=== PATIENT | male | born 1980 | race Caucasian/White ===

== ENCOUNTER 2018-07-16 13:59 | Inpatient (IN) | payer OTHER ==
[2018-07-16 17:15] VITALS: BMI 30.2
--- NOTE | 2018-07-16 20:19 | HP ---
COWS - Scale Resting Pulse: 0= [place] 80 or Below Sweatin=Flushed/Facial Moisture Restless Observation: 0= Sits Still Pupil Size: 0= Normal to Room Light Bone or Joint Aches: 4=Acute Joint/Muscle Pain Runny Nose/ Eye Tearin= Nasal Congestion GI Upset > 30mins: 1= Stomach Cramp Tremor Observation: 2= Slight Tremor Visible Yawning Observation: 0= None Anxiety or Irritability: 4=Extreme Anxiety Goose Flesh Skin: 0=Smooth Skin COWS Score: 14 CIWA Score - Admission Criteria [facility] Guidelines: Admission for Medically Managed Detox: Requires at least one of the followin. CIWA greater than 12 2. Seizures within the past 24 hours 3. Delirium tremens within the past 24 hours 4. Hallucinations within the past 24 hours 5. Acute intervention needed for co occurring medical disorder 6. Acute intervention needed for co occurring psychiatric disorder 7. Severe withdrawal that cannot be handled at a lower level of care (continued vomiting, continued diarrhea, abnormal vital signs) requiring intravenous medication and/or fluids 8. Admission ROS [facility] Chief Complaint: Heroin withdrawal symptoms Allergies/Adverse Reactions: Allergies Allergy/AdvReac Type Severity Reaction Status Date / Time No Known Allergies Allergy Verified 07/16/18 18:26 History of Present Illness: 37 years old male with 4 months of heroin dependence is seeking admission to detox. This is his first detox admission to detox and to [facility]. He denies any period of sobriety. He has medical history of GERD and Depression. He denies suicide attempt and suicidal ideation at this time. Exam Limitations: No Limitations - Ebola screening Have you traveled outside of the country in the last 21 days: No Have you had contact with anyone from an Ebola affected area: No Have you been sick,other than usual withdrawal symptoms: No Do you have a fever: No - Review of Systems Constitutional: Chills, Loss of Appetite, Malaise, Changes in sleep EENT: reports: No Symptoms Reported Respiratory: reports: No Symptoms reported Cardiac: reports: No Symptoms Reported GI: reports: Poor Appetite, Poor Fluid Intake, Abdominal cramping : reports: No Symptoms Reported Musculoskeletal: reports: Neck Pain Integumentary: reports: Dryness Endocrine: reports: No Symptoms Reported Hematology: reports: No Symptoms Reported Psychiatric: reports: Mood/Affect Appropiate, Orientated x3 Other Systems: Reviewed and Negative Patient History - Patient Medical History Hx Anemia: No Hx Asthma: No Hx Chronic Obstructive Pulmonary Disease (COPD): No Hx Cardiac Disorders: No Hx Congestive Heart Failure: No Hx Hypertension: No Hx Hypercholesterolemia: No Hx Pacemaker: No HX Cerebrovascular Accident: No Hx Seizures: No Hx Diabetes: No Hx Gastrointestinal Disorders: Yes (GERD - Omeprazole) Hx Liver Disease: No Hx Genitourinary Disorders: No Hx Sexually Transmitted Disorders: No Hx Renal Disease (ESRD): No Hx Thyroid Disease: No Hx Human Immunodeficiency Virus (HIV): No (NEGATIVE - MARCH 2018) Hx Hepatitis C: No Hx Depression: Yes (Depakote - Patient reort non compliance with medication) Hx Suicide Attempt: No (Denies suicidal ideation at this time) Hx Bipolar Disorder: No Hx Schizophrenia: No - Patient Surgical History Past Surgical History: No - PPD History Previous Implant?: No - Smoking Cessation Smoking history: Current every day smoker Have you smoked in the past 12 months: Yes Aproximately how many cigarettes per day: 2 Hx Chewing Tobacco Use: No Initiated information on smoking cessation: Yes 'Breaking Loose' booklet given: 07/16/18 - Substances Abused Heroin Route: SNIFF Frequency: Daily Amount used: 1 BUNDLE Age of first use: 37 Date of Last Use: 07/16/18 Family Disease History - Family Disease History Family History: Denies Admission Physical Exam S - Vital Signs Vital Signs: Vital Signs - 24 hr 07/16/18 17:10 Temperature 98.7 F Pulse Rate 70 Respiratory 18 Rate Blood Pressure 135/82 - Physical General Appearance: Yes: Mild Distress, Moderate Distress, Tremorous, Irritable , Sweating, Anxious HEENTM: Yes: EOMI, Normal ENT Inspection, Normocephalic, Normal Voice, JAMMIE Respiratory: Yes: Lungs Clear, Normal Breath Sounds, No Respiratory Distress Neck: Yes: Supple Breast: Yes: Breast Exam Deferred Cardiology: Yes: Regular Rhythm, Regular Rate Abdominal: Yes: Normal Bowel Sounds Back: Yes: Normal Inspection Musculoskeletal: Yes: Other (NECK PAIN) Extremities: Yes: Tremors 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, Alert, Motor Strength 5/5, Normal Mood /Affect, Normal Response Integumentary: Yes: Warm Lymphatic: Yes: Within Normal Limits - Diagnostic (1) GERD (gastroesophageal reflux disease) Current Visit: Yes Status: Chronic (2) Depression Current Visit: Yes Status: Chronic Qualifiers: Depression Type: unspecified Qualified Code(s): F32.9 - Major depressive disorder, single episode, unspecified (3) Opioid dependence Current Visit: Yes Status: Chronic Qualifiers: Substance use status: uncomplicated Qualified Code(s): F11.20 - Opioid dependence, uncomplicated (4) Opioid dependence with withdrawal Current Visit: Yes Status: Acute (5) Nicotine dependence Current Visit: Yes Status: Acute Qualifiers: Nicotine product type: cigarettes Substance use status: uncomplicated Qualified Code(s): F17.210 - Nicotine dependence, cigarettes, uncomplicated (6) Cannabis dependence Current Visit: Yes Status: Acute Cleared for Admission S - Detox or Rehab [facility] Level of Care: Medically Managed Detox Regimen/Protocol: Methadone [facility] Breath Alcohol Content Breath Alcohol Content: 0 Urine Drug Screen - Results Drug Screen Negative: No Urine Drug Screen Results: THC-Marijuana, OPI-Opiates
[2018-07-16] MEDS ORDERED: MAGNESIUM CITRATE 300 ML BOTTLE PO PRN (20:28)
[2018-07-16] MEDS ORDERED: MENTHOL/PHENOL 1 EACH UD MM PRN (20:28)
[2018-07-16] MEDS ORDERED: NICOTINE POLACRILEX 2 MG GUM BUC PRN (20:28)
[2018-07-16] MEDS ORDERED: guaiFENesin/D-METHORPHAN HB 10 ML UNIT-DOSE CUPS PO PRN (20:28)
[2018-07-16] MEDS ORDERED: MAGNESIUM HYDROX 2400MG/30ML ORAL SUSPENSION 30 ML CUP PO PRN (20:28)
[2018-07-16] MEDS ORDERED: LOPERAMIDE HCL 2 MG CAPSULE PO PRN (20:28)
[2018-07-16] MEDS ORDERED: IBUPROFEN 400 MG TABLET (FP) PO PRN (20:28)
[2018-07-16] MEDS ORDERED: P-EPHED 60MG/TRIPROLIDI 2.5MG TABLET PO PRN (20:28)
[2018-07-16] MEDS ORDERED: MAG HYDROX/AL HYDROX/SIMETH 30 ML UNIT-DOSE CUP PO PRN (20:28)
[2018-07-16] MEDS ORDERED: METHADONE HCL 10 MG TABLET (FOR DETOX USE ONLY) PO ONE ×2 (20:28→23:00)
[2018-07-16] MEDS ORDERED: ACETAMINOPHEN 325 MG TABLET (FP) PO PRN (20:28)
[2018-07-16] MEDS ORDERED: MELATONIN 5 MG TABLETS PO PRN (22:00)
[2018-07-16] MEDS: diazePAM 5 MG TABLET PO PRN (22:07)
[2018-07-16] MEDS: THIAMINE HCL 100 MG TABLET (FP) PO SCH (22:45)
[2018-07-17 03:04] LABS: URINE APPEARANCE CLEAR; URINE BILIRUBIN NEGATIVE (<2.0 mg/dL); URINE COLOR YELLOW; URINE GLUCOSE (UA) NEGATIVE (NEGATIVE); URINE KETONE NEGATIVE (NEGATIVE); URINE LEUK ESTERASE NEGATIVE (NEGATIVE); URINE NITRITE NEGATIVE (NEGATIVE); URINE PROTEIN NEGATIVE (NEGATIVE)
[2018-07-17] MEDS ORDERED: METHADONE HCL 10 MG TABLET (FOR DETOX USE ONLY) PO ONE (10:00)
[2018-07-17 10:08] LABS: HEMOGLOBIN 13.7 GM/dL (11.7-16.9); MCHC 31.1 g/dl (32.0-35.9); MEAN CELL VOLUME 70.6 fl (80-96); MEAN PLT VOLUME 7.4 fl (7.5-11.1); PLATELET COUNT 474 K/MM3 (134-434); RBC 6.22 M/mm3 (4.00-5.60); WHITE BLOOD COUNT 7.1 K/mm3 (4.0-10.0)
[2018-07-17] MEDS: diazePAM 5 MG TABLET PO PRN ×2 (10:14→22:30)
[2018-07-17] MEDS: PRENATAL VITAMINS W/ FOLIC ACID TABLET (FP) PO SCH (10:15)
[2018-07-17] MEDS: NICOTINE 14 MG/24 HOURS TOPICAL PATCH TD SCH (10:15)
[2018-07-17] MEDS: PANTOPRAZOLE 40 MG TABLET (FP) PO SCH (10:16)
[2018-07-17 10:24] LABS: ALBUMIN 3.5 g/dl (3.4-5.0); ALK PHOS 76 U/L (45-117); ANION GAP 9 MMOL/L (8-16); BILIRUBIN,TOTAL 0.3 mg/dL (0.2-1); BLOOD UREA NITROGEN 18 mg/dL (7-18); CALCIUM 8.8 mg/dL (8.5-10.1); CHLORIDE 100 mmol/L (98-107); CO2 29 mmol/L (21-32); GLUCOSE,RANDOM 77 mg/dL (74-106); POTASSIUM 4.6 mmol/L (3.5-5.1); SGOT/AST 16 U/L (15-37); SGPT/ALT 22 U/L (13-61); SODIUM 138 mmol/L (136-145); TOT PROT 7.6 g/dl (6.4-8.2)
--- NOTE | 2018-07-17 11:00 | PN ---
[facility] Progress Note Note: PATIENT ADMITTED FOR HEROIN DETOX EARLY THIS MORNING. PATIENT C/O SLEEP DISTURBANCE, ANXIOUS AND IRRITABLE. Vital Signs Temperature 97.6 F 07/17/18 10:00 Pulse Rate 60 07/17/18 10:00 Respiratory Rate 17 07/17/18 10:00 Blood Pressure 113/68 07/17/18 10:00 O2 Sat by Pulse Oximetry (%) Laboratory Tests 07/16/18 07/17/18 07/17/18 23:49 07:00 07:00 WBC 7.1 RBC 6.22 H Hgb 13.7 Hct 44.0 MCV 70.6 L MCH 22.0 L MCHC 31.1 L RDW 19.0 H Plt Count 474 H MPV 7.4 L Sodium 138 Potassium 4.6 Chloride 100 Carbon Dioxide 29 Anion Gap 9 BUN 18 Creatinine 1.0 Creat Clearance w eGFR > 60 Random Glucose 77 Calcium 8.8 Total Bilirubin 0.3 AST 16 ALT 22 Alkaline Phosphatase 76 Total Protein 7.6 Albumin 3.5 Urine Color Yellow Urine Appearance Clear Urine pH 6.0 Ur Specific [place] 1.025 Urine Protein Negative Urine Glucose (UA) Negative Urine Ketones Negative Urine Blood Negative Urine Nitrite Negative Urine Bilirubin Negative Urine Urobilinogen 2.0 Ur Leukocyte Esterase Negative PE: ALERT AND ORIENTED X 3 PATIENT IRRITABLE, COVERED FACE WITH BLANKET HE DID NOT WANT TO SPEAK TO PROVIDER EXT FULL ROM, NO VISIBLE TREMORS AT THIS TIME A/P WITHDRAWAL SX CONTINUE DETOX ENCOURAGE ORAL FLUIDS CONTINUE TO MONITOR CLINICALLY
--- NOTE | 2018-07-17 18:47 | CONSULT ---
[facility] Psychiatric Consult - Data Date of interview: 07/17/18 Admission source: [facility] Identifying data: Patient is approached at bedside for psychiatric interview. Mr Ayala refused. Nursing staff is informed of the patient's behavior.
[2018-07-17] MEDS: THIAMINE HCL 100 MG TABLET (FP) PO SCH (22:30)
[2018-07-18] MEDS: NICOTINE 14 MG/24 HOURS TOPICAL PATCH TD SCH (09:47)
[2018-07-18] MEDS: PANTOPRAZOLE 40 MG TABLET (FP) PO SCH (09:47)
[2018-07-18] MEDS: PRENATAL VITAMINS W/ FOLIC ACID TABLET (FP) PO SCH (09:47)
[2018-07-18] MEDS: diazePAM 5 MG TABLET PO PRN (09:47)
[2018-07-18] MEDS ORDERED: METHADONE HCL 5 MG TABLET (FOR DETOX USE ONLY) PO ONE (10:00)
--- NOTE | 2018-07-18 14:23 | PN ---
S COWS - Scale Resting Pulse: 0= [place] 80 or Below Sweatin= Chills/Flushing Restless Observation: 3= Extraneous Movement Pupil Size: 0= Normal to Room Light Bone or Joint Aches: 2= Severe Diffuse Aches Runny Nose/ Eye Tearin= Runny Nose/Eyes GI Upset > 30mins: 1= Stomach Cramp Tremor Observation of Outstretched Hands: 2= Slight Tremor Visible Yawning Observation: 0= None Anxiety or Irritability: 2=Irritable/Anxious Goose Flesh Skin: 0=Smooth Skin COWS Score: 13 BHS Progress Note (SOAP) Subjective: Interrupted sleep, sweating Objective: 07/18/18 14:24 Last Vital Signs Temp Pulse Resp BP Pulse Ox 97.8 F 76 17 111/64 07/18/18 13:34 07/18/18 13:34 07/18/18 13:34 07/18/18 13:34 Laboratory Tests 07/16/18 07/17/18 07/17/18 23:49 07:00 07:00 WBC 7.1 RBC 6.22 H Hgb 13.7 Hct 44.0 MCV 70.6 L MCH 22.0 L MCHC 31.1 L RDW 19.0 H Plt Count 474 H MPV 7.4 L Sodium 138 Potassium 4.6 Chloride 100 Carbon Dioxide 29 Anion Gap 9 BUN 18 Creatinine 1.0 Creat Clearance w eGFR > 60 Random Glucose 77 Calcium 8.8 Total Bilirubin 0.3 AST 16 ALT 22 Alkaline Phosphatase 76 Total Protein 7.6 Albumin 3.5 Urine Color Yellow Urine Appearance Clear Urine pH 6.0 Ur Specific [place] 1.025 Urine Protein Negative Urine Glucose (UA) Negative Urine Ketones Negative Urine Blood Negative Urine Nitrite Negative Urine Bilirubin Negative Urine Urobilinogen 2.0 Ur Leukocyte Esterase Negative RPR Titer 07/17/18 07:00 WBC RBC Hgb Hct MCV MCH MCHC RDW Plt Count MPV Sodium Potassium Chloride Carbon Dioxide Anion Gap BUN Creatinine Creat Clearance w eGFR Random Glucose Calcium Total Bilirubin AST ALT Alkaline Phosphatase Total Protein Albumin Urine Color Urine Appearance Urine pH Ur Specific [place] Urine Protein Urine Glucose (UA) Urine Ketones Urine Blood Urine Nitrite Urine Bilirubin Urine Urobilinogen Ur Leukocyte Esterase RPR Titer Nonreactive Labs reviewed: rbc 6.22, plt 474 Assessment: 07/18/18 14:24 Withdrawal symptoms Noted with erythrocytosis and thrombocytosis Plan: Continue detox Encouraged PO water intake Erythrocytosis: asymptomatic, repeat cbc Thrombocytosis: asymptomatic, repeat cbc
--- NOTE | 2018-07-18 16:33 | DS ---
[facility] Detox Discharge Summary Admission Date: 07/16/18 Discharge Date: 07/18/18 - History Present History: Opioid Dependence (Admitted w/ withdrawal symptoms.) Pertinent Past History: Admitted in opiate withdrawal. 4 month hx opiate use disorder. Hx co-occurring cannabis use disorder and nicotine use. - Physical Exam Results Vital Signs: Vital Signs Temperature 97.8 F 07/18/18 13:34 Pulse Rate 76 07/18/18 13:34 Respiratory Rate 17 07/18/18 13:34 Blood Pressure 111/64 07/18/18 13:34 O2 Sat by Pulse Oximetry (%) Pertinent Admission Physical Exam Findings: Admitted for detox because of opiate withdrawal symptoms. Lab Results WBC 7.1 K/mm3 (4.0-10.0) 07/17/18 07:00 RBC 6.22 M/mm3 (4.00-5.60) H 07/17/18 07:00 Hgb 13.7 GM/dL (11.7-16.9) 07/17/18 07:00 Hct 44.0 % (35.4-49) 07/17/18 07:00 MCV 70.6 fl (80-96) L 07/17/18 07:00 MCHC 31.1 g/dl (32.0-35.9) L 07/17/18 07:00 RDW 19.0 % (11.9-15.9) H 07/17/18 07:00 Plt Count 474 K/MM3 (134-434) H 07/17/18 07:00 Sodium 138 mmol/L (136-145) 07/17/18 07:00 Potassium 4.6 mmol/L (3.5-5.1) 07/17/18 07:00 Chloride 100 mmol/L (98-107) 07/17/18 07:00 Carbon Dioxide 29 mmol/L (21-32) 07/17/18 07:00 Anion Gap 9 MMOL/L (8-16) 07/17/18 07:00 BUN 18 mg/dL (7-18) 07/17/18 07:00 Creatinine 1.0 mg/dL (0.55-1.3) 07/17/18 07:00 Random Glucose 77 mg/dL (74-106) 07/17/18 07:00 Calcium 8.8 mg/dL (8.5-10.1) 07/17/18 07:00 Labs reviewed. - Treatment Hospital Course: Detox Protocol Followed (Did not complete detox. States wanted to go home for birthday. Discussed loss of tolerance and risk and prevention of overdose. Encouraged to consider rehab if able to maintain sobriety over next couple of days.), Discharged Condition Good (Alert and oriented. Gait steady.) - Medication Discharge Medications: Ambulatory Orders Omeprazole 40 mg PO DAILY 07/16/18 - Diagnosis (1) Opioid dependence with withdrawal Status: Acute (2) Depression Status: Chronic Qualifiers: Depression Type: unspecified Qualified Code(s): F32.9 - Major depressive disorder, single episode, unspecified (3) GERD (gastroesophageal reflux disease) Status: Chronic Qualifiers: Esophagitis presence: esophagitis presence not specified Qualified Code(s) : K21.9 - Gastro-esophageal reflux disease without esophagitis - AMA Did Patient Leave Against Medical Advice: Yes
[2018-07-18 17:26] VITALS: BP 110/69; PULSE 68; TEMP 96.5
[2018-07-19] MEDS ORDERED: METHADONE HCL 5 MG TABLET (FOR DETOX USE ONLY) PO ONE (10:00)
[2018-07-20] MEDS ORDERED: METHADONE HCL 10 MG TABLET (FOR DETOX USE ONLY) PO ONE (10:00)
[2018-07-21] MEDS ORDERED: METHADONE HCL 5 MG TABLET (FOR DETOX USE ONLY) PO ONE (06:00)
== END 2018-07-18 16:50 | disposition left against medical advice (07) | DRG 770 ==
LOC: YASAS 13:59 → Y3N 20:37
PROVIDERS: ADMIT Neuromusculoskeletal Medicine & OMM; ATTEND Neuromusculoskeletal Medicine & OMM
PROC: HZ2ZZZZ Detoxification Services for Substance Abuse Treatment (ICD-10-PCS; principal; 2018-07-16)
DX: F11.23 Opioid dependence with withdrawal (principal); F12.20 Cannabis dependence, uncomplicated; F17.210 Nicotine dependence, cigarettes, uncomplicated; F32.9 Major depressive disorder, single episode, unspecified; K21.9 Gastro-esophageal reflux disease without esophagitis; D47.3 Essential (hemorrhagic) thrombocythemia; D75.1 Secondary polycythemia
CPT/HCPCS: 36415; 80053; 81003; 85027; 86593

== ENCOUNTER 2018-10-13 09:45 | Inpatient (IN) | payer OTHER ==
[2018-10-13 13:29] VITALS: BMI 29.8
--- NOTE | 2018-10-13 13:38 | HP ---
COWS - Scale Resting Pulse: 0= [place] 80 or Below Sweatin= Chills/Flushing Restless Observation: 1= Difficult to Sit Still Pupil Size: 0= Normal to Room Light Bone or Joint Aches: 1= Mild Discomfort Runny Nose/ Eye Tearin= Runny Nose/Eyes GI Upset > 30mins: 1= Stomach Cramp Tremor Observation: 1= Tremor [place], Not Seen Yawning Observation: 1= 1-2x During Session Anxiety or Irritability: 1=Feels Anxious/Irritable Goose Flesh Skin: 0=Smooth Skin COWS Score: 9 Admission ROS [facility] - HPI Chief Complaint: I want to stop using, I know if I don't get help I'll . Allergies/Adverse Reactions: Allergies Allergy/AdvReac Type Severity Reaction Status Date / Time No Known Allergies Allergy Verified 07/16/18 18:26 History of Present Illness: 38 yo gentleman here for detox from heroin. Patient has been using for about a year - last time in detox was here in june 2018, then he did not f/u with aftercare but went to be with family in [place] - did well there, did not use. BUt came back in August and relapsed. Denies overdose, no seizures, no black outs. Exam Limitations: No Limitations - Ebola screening Have you traveled outside of the country in the last 21 days: No (N) Have you had contact with anyone from an Ebola affected area: No Have you been sick,other than usual withdrawal symptoms: No Do you have a fever: No - Review of Systems Constitutional: Loss of Appetite, Malaise, Weakness EENT: reports: Blurred Vision, Nose Congestion Respiratory: reports: No Symptoms reported Cardiac: reports: No Symptoms Reported GI: reports: Nausea, Poor Appetite : reports: No Symptoms Reported Musculoskeletal: reports: Back Pain, Muscle Pain Integumentary: reports: No Symptoms Reported Neuro: reports: Headache, Tremors Endocrine: reports: No Symptoms Reported Hematology: reports: No Symptoms Reported Psychiatric: reports: Judgement Intact, Mood/Affect Appropiate, Anxious Other Systems: Reviewed and Negative Patient History - Patient Medical History Hx Anemia: No Hx Asthma: No Hx Chronic Obstructive Pulmonary Disease (COPD): No Hx Cardiac Disorders: No Hx Congestive Heart Failure: No Hx Hypertension: No Hx Hypercholesterolemia: No Hx Pacemaker: No HX Cerebrovascular Accident: No Hx Seizures: No Hx Diabetes: No Hx Gastrointestinal Disorders: Yes (GERD - Omeprazole) Hx Liver Disease: No Hx Genitourinary Disorders: No Hx Sexually Transmitted Disorders: No Hx Renal Disease (ESRD): No Hx Thyroid Disease: No Hx Human Immunodeficiency Virus (HIV): No (NEGATIVE - MARCH 2018) Hx Hepatitis C: No Hx Depression: Yes (hx [facility], hospitalized for psych Bx [place] sep 2017) Hx Suicide Attempt: No (Denies suicidal ideation at this time) Hx Bipolar Disorder: No Hx Schizophrenia: No - Patient Surgical History Past Surgical History: No - PPD History Previous Implant?: Yes Documented Results: Negative w/proof Implanted On Prior [facility] Admission?: Yes Date: 07/18/18 PPD to be Administered?: No - Reproductive History Patient is a Female of Child Bearing Age (11 -55 yrs old): No (male) - Smoking Cessation Smoking history: Current every day smoker Have you smoked in the past 12 months: Yes Aproximately how many cigarettes per day: 2 Hx Chewing Tobacco Use: No Initiated information on smoking cessation: Yes 'Breaking Loose' booklet given: 10/13/18 (give on floor) - Substance & Tx. History Hx Alcohol Use: No Hx Substance Use: Yes Substance Use Type: Heroin, Marijuana Hx Substance Use Treatment: Yes (detox, rehab) - Substances Abused heroin Route: Inhalation Frequency: Daily Amount used: 4 bags Age of first use: 37 Date of Last Use: 10/12/18 marijuan Route: Smoking Frequency: 1-3 times last 30 days Amount used: 1 blunt Age of first use: 13 Date of Last Use: 10/01/18 Family Disease History - Family Disease History Family Disease History: Diabetes: Father (living,), Other: Father, Mother ( living, healthy), Brother (one - living - healthy), Sister (one - living - healthy), Son (two - healthy), Daughter (two healthy) Admission Physical Exam [facility] - Vital Signs Vital Signs: Vital Signs - 24 hr 10/13/18 13:28 Temperature 98.3 F Pulse Rate 66 Respiratory 18 Rate Blood Pressure 139/87 - Physical General Appearance: Yes: Nourished, Appropriately Dressed, Moderate Distress, Anxious HEENTM: Yes: Hearing grossly Normal, Normocephalic, Normal Voice, Pharynx Normal , Nasal Congestion, Rhinorrhea Respiratory: Yes: Normal Breath Sounds, No Respiratory Distress Neck: Yes: No masses,lesions,Nodules Breast: Yes: Breast Exam Deferred Cardiology: Yes: Regular Rhythm, Regular Rate Abdominal: Yes: Soft Genitourinary: Yes: Dysuria Back: Yes: Normal Inspection Musculoskeletal: Yes: full range of Motion, Gait Steady, Back pain, Muscle Pain Extremities: Yes: Normal Inspection, Non-Tender Neurological: Yes: Fully Oriented, Alert, Motor Strength 5/5, Normal Mood/Affect , Normal Response Integumentary: Yes: Normal Color, Warm Lymphatic: Yes: Within Normal Limits - Diagnostic (1) Opioid dependence with withdrawal Current Visit: Yes Status: Acute (2) Cannabis dependence Current Visit: Yes Status: Chronic (3) GERD (gastroesophageal reflux disease) Current Visit: Yes Status: Chronic Qualifiers: Esophagitis presence: esophagitis presence not specified Qualified Code(s) : K21.9 - Gastro-esophageal reflux disease without esophagitis (4) Nicotine dependence Current Visit: Yes Status: Chronic Qualifiers: Nicotine product type: cigarettes Substance use status: uncomplicated Qualified Code(s): F17.210 - Nicotine dependence, cigarettes, uncomplicated Cleared for Admission S - Detox or Rehab [facility] Level of Care: Medically Managed Detox Regimen/Protocol: Methadone [facility] Breath Alcohol Content Breath Alcohol Content: 0 Urine Drug Screen - Results Drug Screen Negative: No Urine Drug Screen Results: THC-Marijuana, OPI-Opiates Inpatient Rehab Admission - Rehab Decision to Admit Inpatient rehab admission?: No
[2018-10-13] MEDS ORDERED: MAG HYDROX/AL HYDROX/SIMETH 30 ML UNIT-DOSE CUP PO PRN (13:51)
[2018-10-13] MEDS ORDERED: guaiFENesin/D-METHORPHAN HB 10 ML UNIT-DOSE CUPS PO PRN (13:51)
[2018-10-13] MEDS ORDERED: P-EPHED 60MG/TRIPROLIDI 2.5MG TABLET PO PRN (13:51)
[2018-10-13] MEDS ORDERED: MAGNESIUM CITRATE 300 ML BOTTLE PO PRN (13:51)
[2018-10-13] MEDS ORDERED: MENTHOL/PHENOL 1 EACH UD MM PRN (13:51)
[2018-10-13] MEDS ORDERED: LOPERAMIDE HCL 2 MG CAPSULE PO PRN (13:51)
[2018-10-13] MEDS ORDERED: ACETAMINOPHEN 325 MG TABLET (FP) PO PRN (13:51)
[2018-10-13] MEDS ORDERED: MAGNESIUM HYDROX 2400MG/30ML ORAL SUSPENSION 30 ML CUP PO PRN (13:51)
[2018-10-13] MEDS ORDERED: IBUPROFEN 400 MG TABLET (FP) PO PRN (13:51)
[2018-10-13] MEDS ORDERED: METHADONE HCL 10 MG TABLET (FOR DETOX USE ONLY) PO ONE ×2 (14:30→23:00)
[2018-10-13] MEDS ORDERED: MELATONIN 5 MG TABLETS PO PRN (22:00)
[2018-10-13] MEDS: THIAMINE HCL 100 MG TABLET (FP) PO SCH (22:27)
[2018-10-14] MEDS: diazePAM 5 MG TABLET PO PRN ×2 (00:46→10:50)
[2018-10-14] MEDS ORDERED: METHADONE HCL 10 MG TABLET (FOR DETOX USE ONLY) PO ONE (10:00)
[2018-10-14 10:40] LABS: HEMATOCRIT 40.6 % (35.4-49); HEMOGLOBIN 13.7 GM/dL (11.7-16.9); MCH 23.7 pg (25.7-33.7); MCHC 33.9 g/dl (32.0-35.9); MEAN CELL VOLUME 69.9 fl (80-96); MEAN PLT VOLUME 8.7 fl (7.5-11.1); PLATELET COUNT 351 K/MM3 (134-434); RDW 20.8 % (11.9-15.9); WHITE BLOOD COUNT 7.2 K/mm3 (4.0-10.0)
[2018-10-14] MEDS: PRENATAL VITAMINS W/ FOLIC ACID TABLET (FP) PO SCH (10:50)
[2018-10-14 10:55] LABS: ALBUMIN 3.4 g/dl (3.4-5.0); ALK PHOS 71 U/L (45-117); ANION GAP 7 MMOL/L (8-16); BILIRUBIN,TOTAL 0.5 mg/dL (0.2-1); BLOOD UREA NITROGEN 15 mg/dL (7-18); CHLORIDE 104 mmol/L (98-107); CO2 28 mmol/L (21-32); CREATININE 0.9 mg/dL (0.55-1.3); GLUCOSE,RANDOM 94 mg/dL (74-106); POTASSIUM 4.3 mmol/L (3.5-5.1); SGOT/AST 14 U/L (15-37); SGPT/ALT 17 U/L (13-61); SODIUM 139 mmol/L (136-145); TOT PROT 7.2 g/dl (6.4-8.2)
--- NOTE | 2018-10-14 10:57 | PN ---
[facility] COWS - Scale Resting Pulse: 0= [place] 80 or Below Sweatin= No chills or Flushing Restless Observation: 1= Difficult to Sit Still Pupil Size: 1= Pupils >than Normal Bone or Joint Aches: 2= Severe Diffuse Aches Runny Nose/ Eye Tearin= None GI Upset > 30mins: 2= Nausea/Diarrhea Tremor Observation of Outstretched Hands: 0= None Yawning Observation: 1= 1-2x During Session Anxiety or Irritability: 2=Irritable/Anxious Goose Flesh Skin: 0=Smooth Skin COWS Score: 9 BHS Progress Note (SOAP) Subjective: PATIENT C/O ANXIETY, DIFFICULTY SITTING STILL, BODY ACHES AND NAUSEA. Objective: 10/14/18 10:55 Vital Signs Temperature 97.8 F 10/14/18 09:28 Pulse Rate 50 L 10/14/18 09:28 Respiratory Rate 18 10/14/18 09:28 Blood Pressure 132/69 10/14/18 09:28 O2 Sat by Pulse Oximetry (%) Laboratory Tests 10/14/18 10/14/18 02:24 07:50 WBC 7.2 RBC 5.80 H Hgb 13.7 Hct 40.6 MCV 69.9 L MCH 23.7 L MCHC 33.9 RDW 20.8 H Plt Count 351 D MPV 8.7 D Sodium 139 Potassium 4.3 Chloride 104 Carbon Dioxide 28 Anion Gap 7 L BUN 15 Creatinine 0.9 Creat Clearance w eGFR > 60 Random Glucose 94 Calcium 9.0 Total Bilirubin 0.5 AST 14 L ALT 17 Alkaline Phosphatase 71 Total Protein 7.2 Albumin 3.4 PE: ALERT AND ORIENTED X 3 SKIN WARM AND DRY EXT FULL ROM, AMB AD APOLLO ANXIOUS/MILD RESTLESSNESS Assessment: 10/14/18 10:57 WITHDRAWAL SX Plan: CONTINUE DETOX ENCOURAGE ORAL FLUIDS CONTINUE TO MONITOR CLINICALLY
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
[2018-10-14] MEDS: THIAMINE HCL 100 MG TABLET (FP) PO SCH (22:10)
[2018-10-14] MEDS: QUEtiapine FUMARATE 100 MG TABLET (FP) PO SCH (22:10)
[2018-10-15] MEDS ORDERED: METHADONE HCL 5 MG TABLET (FOR DETOX USE ONLY) PO ONE (10:00)
[2018-10-15] MEDS: PRENATAL VITAMINS W/ FOLIC ACID TABLET (FP) PO SCH (11:00)
--- NOTE | 2018-10-15 13:02 | PN ---
[facility] COWS - Scale Resting Pulse: 0= [place] 80 or Below Sweatin= Chills/Flushing Restless Observation: 1= Difficult to Sit Still Pupil Size: 0= Normal to Room Light Bone or Joint Aches: 0= None Runny Nose/ Eye Tearin= Nasal Congestion GI Upset > 30mins: 0= None Tremor Observation of Outstretched Hands: 2= Slight Tremor Visible Yawning Observation: 1= 1-2x During Session Anxiety or Irritability: 2=Irritable/Anxious Goose Flesh Skin: 0=Smooth Skin COWS Score: 8 BHS Progress Note (SOAP) Subjective: Body Aches, Tremors. Objective: PATIENT A & O X 3, OBSERVED AMBULATING ON UNIT. IN NO ACUTE DISTRESS. 10/15/18 13:03 Vital Signs Temperature 97.7 F 10/15/18 09:42 Pulse Rate 60 10/15/18 09:42 Respiratory Rate 17 10/15/18 09:42 Blood Pressure 137/75 10/15/18 09:42 O2 Sat by Pulse Oximetry (%) Laboratory Tests 10/14/18 10/14/18 10/14/18 02:24 07:50 07:50 WBC 7.2 RBC 5.80 H Hgb 13.7 Hct 40.6 MCV 69.9 L MCH 23.7 L MCHC 33.9 RDW 20.8 H Plt Count 351 D MPV 8.7 D Sodium 139 Potassium 4.3 Chloride 104 Carbon Dioxide 28 Anion Gap 7 L BUN 15 Creatinine 0.9 Creat Clearance w eGFR > 60 Random Glucose 94 Calcium 9.0 Total Bilirubin 0.5 AST 14 L ALT 17 Alkaline Phosphatase 71 Total Protein 7.2 Albumin 3.4 RPR Titer Nonreactive LABS NOTED. Assessment: 10/15/18 13:03 WITHDRAWAL SYMPTOMS. Plan: CONTINUE DETOX.
[2018-10-15] MEDS: QUEtiapine FUMARATE 100 MG TABLET (FP) PO SCH (22:10)
[2018-10-15] MEDS: THIAMINE HCL 100 MG TABLET (FP) PO SCH (22:10)
[2018-10-16] MEDS ORDERED: METHADONE HCL 10 MG TABLET (FOR DETOX USE ONLY) PO ONE (09:30)
[2018-10-16 09:42] VITALS: BP 127/68; PULSE 55; TEMP 97.7
[2018-10-16] MEDS ORDERED: METHADONE HCL 5 MG TABLET (FOR DETOX USE ONLY) PO ONE (10:00)
[2018-10-16] MEDS: PRENATAL VITAMINS W/ FOLIC ACID TABLET (FP) PO SCH (10:21)
--- NOTE | 2018-10-16 11:11 | PN ---
S Progress Note Note: Psychiatric nurse practitioner note: A 14 day prescription of seroquel 100mg was electronically sent to [facility] at [address] [place] [address], [facility]. Patient encouraged to follow up with outpatient provider for additional refills.
--- NOTE | 2018-10-16 16:18 | DS ---
[facility] Detox Discharge Summary Admission Date: 10/13/18 Discharge Date: 10/16/18 - History Present History: Cannabis Dependence, Opioid Dependence Additional Comments: PATIENT DENIES CURRENT WITHDRAWAL / DETOX SYMPTOMS AND REPORTS THAT HE FEELS WELL OVERALL AT TIME OF DISCHARGE FROM DETOX UNIT. PATIENT GOING HOME TO ATTEND TO A PERSONAL ISSUE, THEN HE GO TO [facility] ([place], [place] ) FOR AFTERCARE. PATIENT WAS DISCHARGED FROM DETOX UNIT IN STABLE MEDICAL CONDITION. Pertinent Past History: History of G.E.R.D., Nicotine Dependence, Erythrocytosis, Depressive Disorder. - Physical Exam Results Vital Signs: Vital Signs Temperature 97.7 F 10/16/18 09:40 Pulse Rate 55 L 10/16/18 09:40 Respiratory Rate 18 10/16/18 09:40 Blood Pressure 127/68 10/16/18 09:40 O2 Sat by Pulse Oximetry (%) Pertinent Admission Physical Exam Findings: WITHDRAWAL SYMPTOMS. Laboratory Tests 10/14/18 10/14/18 10/14/18 02:24 07:50 07:50 WBC 7.2 RBC 5.80 H Hgb 13.7 Hct 40.6 MCV 69.9 L MCH 23.7 L MCHC 33.9 RDW 20.8 H Plt Count 351 D MPV 8.7 D Sodium 139 Potassium 4.3 Chloride 104 Carbon Dioxide 28 Anion Gap 7 L BUN 15 Creatinine 0.9 Creat Clearance w eGFR > 60 Random Glucose 94 Calcium 9.0 Total Bilirubin 0.5 AST 14 L ALT 17 Alkaline Phosphatase 71 Total Protein 7.2 Albumin 3.4 RPR Titer Nonreactive LABS NOTED. - Treatment Hospital Course: Detox Protocol Followed, Detoxed Safely, Responded well, Discharged Condition Good Patient has Accepted a Rehab Referral to: PATIENT WILL ATTEND [facility] ([place], [place]). - Medication Discharge Medications: Ambulatory Orders Omeprazole 40 mg PO DAILY PRN 07/16/18 Quetiapine Fumarate [Seroquel] 100 mg PO HS #14 tablet 10/16/18 - Diagnosis (1) Depressive disorder Status: Acute (2) Opioid dependence with withdrawal Status: Acute (3) Substance induced mood disorder Status: Acute (4) Cannabis dependence Status: Chronic (5) GERD (gastroesophageal reflux disease) Status: Chronic Qualifiers: Esophagitis presence: esophagitis presence not specified Qualified Code(s) : K21.9 - Gastro-esophageal reflux disease without esophagitis (6) Nicotine dependence Status: Chronic Qualifiers: Nicotine product type: cigarettes Substance use status: uncomplicated Qualified Code(s): F17.210 - Nicotine dependence, cigarettes, uncomplicated (7) Erythrocytosis Status: Acute - AMA Did Patient Leave Against Medical Advice: No
--- NOTE | 2018-10-16 16:21 | PN ---
BHS Progress Note (SOAP) Subjective: Patient denies current Withdrawal / Detox symptoms and reports that he feels well overall. Objective: PATIENT A & O X 3, OBSERVED AMBULATING ON UNIT. IN NO ACUTE DISTRESS. 10/16/18 16:19 Vital Signs Temperature 97.7 F 10/16/18 09:40 Pulse Rate 55 L 10/16/18 09:40 Respiratory Rate 18 10/16/18 09:40 Blood Pressure 127/68 10/16/18 09:40 O2 Sat by Pulse Oximetry (%) Laboratory Tests 10/14/18 10/14/18 10/14/18 02:24 07:50 07:50 WBC 7.2 RBC 5.80 H Hgb 13.7 Hct 40.6 MCV 69.9 L MCH 23.7 L MCHC 33.9 RDW 20.8 H Plt Count 351 D MPV 8.7 D Sodium 139 Potassium 4.3 Chloride 104 Carbon Dioxide 28 Anion Gap 7 L BUN 15 Creatinine 0.9 Creat Clearance w eGFR > 60 Random Glucose 94 Calcium 9.0 Total Bilirubin 0.5 AST 14 L ALT 17 Alkaline Phosphatase 71 Total Protein 7.2 Albumin 3.4 RPR Titer Nonreactive LABS NOTED. Assessment: 10/16/18 16:19 COMPLETION OF DETOX REGIMEN. Plan: PATIENT REQUESTS TO HAVE EARLY DISCHARGE FROM DETOX UNIT DUE TO FACT THAT HE HAS A PERSONAL ISSUE TO ATTEND TO. SINCE PATIENT DENIES ANY CURRENT WITHDRAWAL / DETOX SYMPTOMS, EARLY DISCHARGE FROM DETOX UNIT GRANTED. DETOX MEDICATION SCHEDULE MODIFIED ACCORDINGLY.
[2018-10-17] MEDS ORDERED: METHADONE HCL 10 MG TABLET (FOR DETOX USE ONLY) PO ONE (10:00)
[2018-10-18] MEDS ORDERED: METHADONE HCL 5 MG TABLET (FOR DETOX USE ONLY) PO ONE (06:00)
== END 2018-10-16 11:05 | disposition home or self-care (01) | DRG 773 ==
LOC: YASAS 09:45 → Y6N 15:28
PROVIDERS: ADMIT Surgery; ATTEND Surgery
PROC: HZ2ZZZZ Detoxification Services for Substance Abuse Treatment (ICD-10-PCS; principal; 2018-10-13)
DX: F11.23 Opioid dependence with withdrawal (principal); F12.20 Cannabis dependence, uncomplicated; F17.210 Nicotine dependence, cigarettes, uncomplicated; F19.24 Other psychoactive substance dependence with psychoactive substance-induced mood disorder; F32.9 Major depressive disorder, single episode, unspecified; K21.9 Gastro-esophageal reflux disease without esophagitis; D75.1 Secondary polycythemia
CPT/HCPCS: 36415; 80053; 85027; 86593

== ENCOUNTER 2018-12-08 09:29 | Inpatient (IN) | payer OTHER ==
[2018-12-08 10:02] VITALS: BMI 29.1
--- NOTE | 2018-12-08 10:31 | HP ---
"COWS - Scale Resting Pulse: 0= [place] 80 or Below Sweatin= Chills/Flushing Restless Observation: 1= Difficult to Sit Still Pupil Size: 0= Normal to Room Light Bone or Joint Aches: 1= Mild Discomfort Runny Nose/ Eye Tearin= Runny Nose/Eyes GI Upset > 30mins: 2= Nausea/Diarrhea Tremor Observation: 1= Tremor [place], Not Seen Yawning Observation: 0= None Anxiety or Irritability: 1=Feels Anxious/Irritable Goose Flesh Skin: 0=Smooth Skin COWS Score: 9 Admission ROS S - HPI Chief Complaint: I want to be the person I was before drugs Allergies/Adverse Reactions: Allergies Allergy/AdvReac Type Severity Reaction Status Date / Time No Known Allergies Allergy Verified 10/13/18 15:25 History of Present Illness: 38 yo gentleman here for detox from opiates - last here in Sep 2018. Patient denies overdose or black outs. States after last admission he went to methadone program but did not like having to go every day so stopped (sometime early October) and subsequently relapsed with heroin. Denies using methadone though urine tox + MTH. [facility]: cynthia boone, 1980 Search Date: 12/08/2018 10:26:07 AM The Drug Utilization Report below displays all of the controlled substance prescriptions, if any, that your patient has filled in the last twelve months. The information displayed on this report is compiled from pharmacy submissions to the Department, and accurately reflects the information as submitted by the pharmacies. This report was requested by: Crystal Hernandez | Reference #: [id number] There are no results for the search terms that you entered. Exam Limitations: No Limitations - Ebola screening Have you traveled outside of the country in the last 21 days: No Have you had contact with anyone from an Ebola affected area: No - Review of Systems Constitutional: Loss of Appetite, Malaise, Night Sweats, Changes in sleep, Unintentional Wgt. Loss EENT: reports: Nose Congestion Respiratory: reports: No Symptoms reported Cardiac: reports: No Symptoms Reported GI: reports: Nausea, Poor Appetite, Indigestion : reports: Dysuria Musculoskeletal: reports: Back Pain, Joint Pain, Muscle Pain Integumentary: reports: No Symptoms Reported Neuro: reports: Headache Endocrine: reports: No Symptoms Reported Psychiatric: reports: Judgement Intact, Mood/Affect Appropiate, Anxious Other Systems: Reviewed and Negative Patient History - Patient Medical History Hx Anemia: No Hx Asthma: No Hx Chronic Obstructive Pulmonary Disease (COPD): No Hx Cancer: No Hx Cardiac Disorders: No Hx Congestive Heart Failure: No Hx Hypertension: No Hx Hypercholesterolemia: No Hx Pacemaker: No HX Cerebrovascular Accident: No Hx Seizures: No Hx Diabetes: No Hx Gastrointestinal Disorders: Yes (GERD - Omeprazole) Hx Liver Disease: No Hx Genitourinary Disorders: No Hx Sexually Transmitted Disorders: No Hx Renal Disease (ESRD): No Hx Thyroid Disease: No Hx Human Immunodeficiency Virus (HIV): No (NEGATIVE - MARCH 2018) Hx Hepatitis C: No Hx Depression: Yes (hx deplynn summers, hospitalized for psych Bx [facility] sep 2018) Hx Suicide Attempt: No (Denies suicidal ideation at this time) Hx Bipolar Disorder: No Hx Schizophrenia: No - Patient Surgical History Past Surgical History: No - PPD History Previous Implant?: Yes Documented Results: Negative w/proof Implanted On Prior R Admission?: Yes Date: 07/18/18 PPD to be Administered?: No - Reproductive History Patient is a Female of Child Bearing Age (11 -55 yrs old): No (male) - Smoking Cessation Smoking history: Current some day smoker Have you smoked in the past 12 months: Yes Aproximately how many cigarettes per day: 2 Hx Chewing Tobacco Use: No Initiated information on smoking cessation: Yes 'Breaking Loose' booklet given: 12/08/18 (give on floor) - Substance & Tx. History Hx Alcohol Use: No Hx Substance Use: Yes Substance Use Type: Marijuana, Opiates Hx Substance Use Treatment: Yes (detox, rehab) - Substances abused Heroin Substance route: Inhalation Frequency: Daily Amount used: 5 bags Age of first use: 37 Date of last use: 12/07/18 Marijuana/Hashish Substance route: Smoking Frequency: 1-2 times per week Amount used: 1 joint Age of first use: 13 Date of last use: 12/03/18 Family Disease History - Family Disease History Family Disease History: Diabetes: Father (living,), Other: Father, Mother ( living, healthy), Brother (one - living - healthy), Sister (one - living - healthy), Son (two - healthy), Daughter (two healthy) Admission Physical Exam BHS - Vital Signs Vital Signs: Vital Signs - 24 hr 12/08/18 12/08/18 09:57 10:15 Temperature 97.3 F L 97.3 F L Pulse Rate 65 65 Respiratory 18 18 Rate Blood Pressure 140/85 140/85 - Physical General Appearance: Yes: Nourished, Appropriately Dressed, Moderate Distress, Sweating, Anxious HEENTM: Yes: Hearing grossly Normal, Normocephalic, Normal Voice, Pharynx Normal , Nasal Congestion, Rhinorrhea Respiratory: Yes: Normal Breath Sounds, No Respiratory Distress Neck: Yes: No masses,lesions,Nodules Breast: Yes: Breast Exam Deferred Cardiology: Yes: Regular Rhythm, Regular Rate Abdominal: Yes: Soft Genitourinary: Yes: Hesitency Back: Yes: Normal Inspection Musculoskeletal: Yes: full range of Motion, Gait Steady Extremities: Yes: Normal Inspection Neurological: Yes: Fully Oriented, Alert, Normal Mood/Affect, Normal Response Integumentary: Yes: Normal Color, Warm Lymphatic: Yes: Within Normal Limits - Diagnostic (1) Opioid dependence with withdrawal Current Visit: Yes Status: Acute (2) Nicotine dependence Current Visit: Yes Status: Chronic Qualifiers: Nicotine product type: cigarettes Substance use status: uncomplicated Qualified Code(s): F17.210 - Nicotine dependence, cigarettes, uncomplicated (3) Cannabis dependence Current Visit: Yes Status: Chronic Cleared for Admission [facility] - Detox or Rehab [facility] Level of Care: Medically Managed Detox Regimen/Protocol: Methadone Breathalyzer - Breathalyzer Breathalyzer: 0 Urine Drug Screen - Test Device Lot number: [id number] Expiration date: 07/27/20 - Control Is test valid?: Yes - Results Drug screen NEGATIVE: No Urine drug screen results: THC-Marijuana, MOP-Opiates, MTD-Methadone Inpatient Rehab Admission - Rehab Decision to Admit Inpatient rehab admission?: No"
[2018-12-08] MEDS ORDERED: hydrOXYzine PAMOATE 25 MG CAPSULE (FP) PO PRN (10:39)
[2018-12-08] MEDS ORDERED: cloNIDine HCL 0.1 MG TABLET PO PRN (10:39)
[2018-12-08] MEDS ORDERED: MAGNESIUM HYDROX 2400MG/30ML ORAL SUSPENSION 30 ML CUP PO PRN (10:39)
[2018-12-08] MEDS ORDERED: ACETAMINOPHEN 325 MG TABLET (FP) PO PRN (10:39)
[2018-12-08] MEDS ORDERED: METHOCARBAMOL 500 MG TABLET PO PRN (10:39)
[2018-12-08] MEDS ORDERED: MAG HYDROX/AL HYDROX/SIMETH 30 ML UNIT-DOSE CUP PO PRN (10:39)
[2018-12-08] MEDS ORDERED: MENTHOL/PHENOL 1 EACH UD MM PRN (10:39)
[2018-12-08] MEDS ORDERED: MAGNESIUM CITRATE 300 ML BOTTLE PO PRN (10:39)
[2018-12-08] MEDS ORDERED: METHADONE HCL 10 MG TABLET PO ONE (11:30)
[2018-12-08] MEDS: PANTOPRAZOLE 40 MG TABLET (FP) PO SCH (14:51)
[2018-12-08] MEDS: MELATONIN 5 MG TABLETS PO PRN (22:07)
[2018-12-08] MEDS: THIAMINE HCL 100 MG TABLET (FP) PO SCH (22:07)
[2018-12-08] MEDS ORDERED: METHADONE HCL 10 MG TABLET (FOR DETOX USE ONLY) PO ONE (23:00)
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
[2018-12-09] MEDS ORDERED: METHADONE HCL 5 MG TABLET (FOR DETOX USE ONLY) PO ONE (10:00)
--- NOTE | 2018-12-09 10:10 | PN ---
BHS COWS - Scale Resting Pulse: 0= MA 80 or Below Sweatin= Chills/Flushing Restless Observation: 0= Sits Still Pupil Size: 0= Normal to Room Light Bone or Joint Aches: 1= Mild Discomfort Runny Nose/ Eye Tearin= Nasal Congestion GI Upset > 30mins: 1= Stomach Cramp Tremor Observation of Outstretched Hands: 1= Tremor [place], Not Seen Yawning Observation: 2= >3x During Session Anxiety or Irritability: 1=Feels Anxious/Irritable Goose Flesh Skin: 0=Smooth Skin COWS Score: 8 BHS Progress Note (SOAP) Subjective: body aches tired low energy resting on bed Objective: 12/09/18 10:10 Vital Signs Temperature 98.2 F 12/09/18 09:17 Pulse Rate 67 12/09/18 09:17 Respiratory Rate 18 12/09/18 09:17 Blood Pressure 128/81 12/09/18 09:17 O2 Sat by Pulse Oximetry (%) 12/09/18 10:10 lab pending Assessment: 12/09/18 10:10 withdrawal sx Plan: continue detox
[2018-12-09] MEDS: PRENATAL VITAMINS W/ FOLIC ACID TABLET (FP) PO SCH (10:24)
[2018-12-09] MEDS: PANTOPRAZOLE 40 MG TABLET (FP) PO SCH (10:24)
[2018-12-09] MEDS: IBUPROFEN 400 MG TABLET (FP) PO PRN (10:25)
[2018-12-09 10:28] LABS: ALBUMIN 3.2 g/dl (3.4-5.0); ALK PHOS 74 U/L (45-117); ANION GAP 6 MMOL/L (8-16); BILIRUBIN,TOTAL 0.6 mg/dL (0.2-1); BLOOD UREA NITROGEN 15 mg/dL (7-18); CALCIUM 8.5 mg/dL (8.5-10.1); CHLORIDE 102 mmol/L (98-107); CO2 28 mmol/L (21-32); CREATININE 0.9 mg/dL (0.55-1.3); GLUCOSE,RANDOM 85 mg/dL (74-106); POTASSIUM 4.6 mmol/L (3.5-5.1); SGOT/AST 19 U/L (15-37); SGPT/ALT 19 U/L (13-61); SODIUM 136 mmol/L (136-145); TOT PROT 6.9 g/dl (6.4-8.2)
[2018-12-09 10:31] LABS: HEMATOCRIT 40.2 % (35.4-49); MCH 22.7 pg (25.7-33.7); MCHC 32.2 g/dl (32.0-35.9); MEAN CELL VOLUME 70.4 fl (80-96); MEAN PLT VOLUME 7.3 fl (7.5-11.1); PLATELET COUNT 395 K/MM3 (134-434); RBC 5.71 M/mm3 (4.00-5.60); RDW 20.6 % (11.9-15.9); WHITE BLOOD COUNT 7.6 K/mm3 (4.0-10.0)
[2018-12-09] MEDS ORDERED: QUEtiapine FUMARATE 100 MG TABLET (FP) PO SCH (22:00)
[2018-12-09] MEDS: THIAMINE HCL 100 MG TABLET (FP) PO SCH (22:15)
[2018-12-09] MEDS: MELATONIN 5 MG TABLETS PO PRN (22:15)
[2018-12-10] MEDS ORDERED: METHADONE HCL 10 MG TABLET (FOR DETOX USE ONLY) PO ONE (10:00)
--- NOTE | 2018-12-10 10:10 | PN ---
BHS COWS - Scale Resting Pulse: 0= [place] 80 or Below Sweatin= Chills/Flushing Restless Observation: 0= Sits Still Pupil Size: 0= Normal to Room Light Bone or Joint Aches: 1= Mild Discomfort Runny Nose/ Eye Tearin= Nasal Congestion GI Upset > 30mins: 1= Stomach Cramp Tremor Observation of Outstretched Hands: 1= Tremor [place], Not Seen Yawning Observation: 1= 1-2x During Session Anxiety or Irritability: 1=Feels Anxious/Irritable Goose Flesh Skin: 0=Smooth Skin COWS Score: 7 S Progress Note (SOAP) Subjective: doing ok with methadone detox regimen discuss medication assisted maintenance treatment program Objective: 12/10/18 10:11 Vital Signs Temperature 98.4 F 12/10/18 09:00 Pulse Rate 55 L 12/10/18 09:00 Respiratory Rate 18 12/10/18 09:00 Blood Pressure 118/77 12/10/18 09:00 O2 Sat by Pulse Oximetry (%) Laboratory Last Values WBC 7.6 K/mm3 (4.0-10.0) 12/09/18 07:15 RBC 5.71 M/mm3 (4.00-5.60) H 12/09/18 07:15 Hgb 13.0 GM/dL (11.7-16.9) 12/09/18 07:15 Hct 40.2 % (35.4-49) 12/09/18 07:15 MCV 70.4 fl (80-96) L 12/09/18 07:15 MCH 22.7 pg (25.7-33.7) L 12/09/18 07:15 MCHC 32.2 g/dl (32.0-35.9) 12/09/18 07:15 RDW 20.6 % (11.9-15.9) H 12/09/18 07:15 Plt Count 395 K/MM3 (134-434) 12/09/18 07:15 MPV 7.3 fl (7.5-11.1) L D 12/09/18 07:15 Sodium 136 mmol/L (136-145) 12/09/18 07:15 Potassium 4.6 mmol/L (3.5-5.1) 12/09/18 07:15 Chloride 102 mmol/L (98-107) 12/09/18 07:15 Carbon Dioxide 28 mmol/L (21-32) 12/09/18 07:15 Anion Gap 6 MMOL/L (8-16) L 12/09/18 07:15 BUN 15 mg/dL (7-18) 12/09/18 07:15 Creatinine 0.9 mg/dL (0.55-1.3) 12/09/18 07:15 Creat Clearance w eGFR 93.94 (>60) 12/09/18 07:15 Random Glucose 85 mg/dL (74-106) 12/09/18 07:15 Calcium 8.5 mg/dL (8.5-10.1) 12/09/18 07:15 Total Bilirubin 0.6 mg/dL (0.2-1) 12/09/18 07:15 AST 19 U/L (15-37) 12/09/18 07:15 ALT 19 U/L (13-61) 12/09/18 07:15 Alkaline Phosphatase 74 U/L (45-117) 12/09/18 07:15 Total Protein 6.9 g/dl (6.4-8.2) 12/09/18 07:15 Albumin 3.2 g/dl (3.4-5.0) L 12/09/18 07:15 RPR Titer Nonreactive (NONREACTIVE) 12/09/18 07:15 lab noted Assessment: 12/10/18 10:11 opiate withdrawal sx Plan: continue opiate detox sisal picker narcan from pharmacy
[2018-12-10] MEDS: PANTOPRAZOLE 40 MG TABLET (FP) PO SCH (10:13)
[2018-12-10] MEDS: PRENATAL VITAMINS W/ FOLIC ACID TABLET (FP) PO SCH (10:13)
[2018-12-10] MEDS: IBUPROFEN 400 MG TABLET (FP) PO PRN (10:14)
--- NOTE | 2018-12-10 12:07 | DS ---
[facility] Detox Discharge Summary Admission Date: 12/08/18 Discharge Date: 12/10/18 - History Present History: Opioid Dependence Additional Comments: 38 years old male admitted on 12/08/18 for opiate withdrawal stabilization feeling better today preferring to go [facility] - Physical Exam Results Vital Signs: Vital Signs Temperature 98.4 F 12/10/18 09:00 Pulse Rate 55 L 12/10/18 09:00 Respiratory Rate 18 12/10/18 09:00 Blood Pressure 118/77 12/10/18 09:00 O2 Sat by Pulse Oximetry (%) Pertinent Admission Physical Exam Findings: opiate withdrawal sx Laboratory Last Values WBC 7.6 K/mm3 (4.0-10.0) 12/09/18 07:15 RBC 5.71 M/mm3 (4.00-5.60) H 12/09/18 07:15 Hgb 13.0 GM/dL (11.7-16.9) 12/09/18 07:15 Hct 40.2 % (35.4-49) 12/09/18 07:15 MCV 70.4 fl (80-96) L 12/09/18 07:15 MCH 22.7 pg (25.7-33.7) L 12/09/18 07:15 MCHC 32.2 g/dl (32.0-35.9) 12/09/18 07:15 RDW 20.6 % (11.9-15.9) H 12/09/18 07:15 Plt Count 395 K/MM3 (134-434) 12/09/18 07:15 MPV 7.3 fl (7.5-11.1) L D 12/09/18 07:15 Sodium 136 mmol/L (136-145) 12/09/18 07:15 Potassium 4.6 mmol/L (3.5-5.1) 12/09/18 07:15 Chloride 102 mmol/L (98-107) 12/09/18 07:15 Carbon Dioxide 28 mmol/L (21-32) 12/09/18 07:15 Anion Gap 6 MMOL/L (8-16) L 12/09/18 07:15 BUN 15 mg/dL (7-18) 12/09/18 07:15 Creatinine 0.9 mg/dL (0.55-1.3) 12/09/18 07:15 Creat Clearance w eGFR 93.94 (>60) 12/09/18 07:15 Random Glucose 85 mg/dL (74-106) 12/09/18 07:15 Calcium 8.5 mg/dL (8.5-10.1) 12/09/18 07:15 Total Bilirubin 0.6 mg/dL (0.2-1) 12/09/18 07:15 AST 19 U/L (15-37) 12/09/18 07:15 ALT 19 U/L (13-61) 12/09/18 07:15 Alkaline Phosphatase 74 U/L (45-117) 12/09/18 07:15 Total Protein 6.9 g/dl (6.4-8.2) 12/09/18 07:15 Albumin 3.2 g/dl (3.4-5.0) L 12/09/18 07:15 RPR Titer Nonreactive (NONREACTIVE) 12/09/18 07:15 lab noted - Treatment Hospital Course: Detox Protocol Followed, Detoxed Safely, Responded well, Discharged Condition Good, Rehab Referral Accepted Patient has Accepted a Rehab Referral to: [facility] - Medication Discharge Medications: Ambulatory Orders Omeprazole 40 mg PO DAILY PRN 07/16/18 Quetiapine Fumarate [Seroquel] 100 mg PO HS #14 tablet 10/16/18 Naloxone HCl [Narcan] 4 mg NS ASDIR PRN 12/10/18 - Diagnosis (1) Opioid dependence with withdrawal Current Visit: Yes Status: Acute (2) Nicotine dependence Current Visit: Yes Status: Acute Qualifiers: Nicotine product type: cigarettes Substance use status: in withdrawal Qualified Code(s): F17.213 - Nicotine dependence, cigarettes, with withdrawal (3) Substance induced mood disorder Current Visit: Yes Status: Suspected (4) GERD (gastroesophageal reflux disease) Current Visit: Yes Status: Chronic Qualifiers: Esophagitis presence: esophagitis presence not specified Qualified Code(s) : K21.9 - Gastro-esophageal reflux disease without esophagitis - AMA Did Patient Leave Against Medical Advice: No
[2018-12-10 17:42] VITALS: BP 121/69; PULSE 55; TEMP 98.8
[2018-12-11] MEDS ORDERED: METHADONE HCL 5 MG TABLET (FOR DETOX USE ONLY) PO ONE (06:00)
== END 2018-12-10 17:55 | disposition other institution (70) | DRG 773 ==
LOC: YASAS 09:29 → Y3N 11:07
PROVIDERS: ADMIT Surgery; ATTEND Surgery
PROC: HZ2ZZZZ Detoxification Services for Substance Abuse Treatment (ICD-10-PCS; principal; 2018-12-08)
DX: F11.23 Opioid dependence with withdrawal (principal); F12.20 Cannabis dependence, uncomplicated; F17.213 Nicotine dependence, cigarettes, with withdrawal; F19.24 Other psychoactive substance dependence with psychoactive substance-induced mood disorder; F19.282 Other psychoactive substance dependence with psychoactive substance-induced sleep disorder; F32.9 Major depressive disorder, single episode, unspecified; K21.9 Gastro-esophageal reflux disease without esophagitis; Z59.0 Homelessness
CPT/HCPCS: 36415; 80053; 85027; 86593

== ENCOUNTER 2018-12-10 18:10 | Inpatient (IN) | payer OTHER ==
--- NOTE | 2018-12-10 15:44 | HP ---
[facility] Rehab Assess/Revision - Admission History Admitted to Rehab from: [facility] Date of Admission to Rehab: 12/10/18 - Findings Detox History & Physical reviewed: Yes Concur with findings: Yes Comments/Additional Findings: transferred from detox to rehab admission as per protocol Inpatient Rehab Admission - Rehab Decision to Admit Inpatient rehab admission?: Yes - Initial Determination Are CD services needed?: Yes Free of communicable disease: Yes Not in need of hospitalization: Yes - Rehab Admission Criteria Previous failed treatment: Yes Poor recovery environment: Yes Comorbidities: Yes Lacks judgement: No Patient is meeting Inpatient Rehab admission criteria:: Yes
[~2018-12-10 18:10] MED LIST: ACETAMINOPHEN 325 MG TABLET (FP) PO PRN; IBUPROFEN 400 MG TABLET (FP) PO PRN; LOPERAMIDE HCL 2 MG CAPSULE PO PRN; MAG HYDROX/AL HYDROX/SIMETH 30 ML UNIT-DOSE CUP PO PRN; MAGNESIUM CITRATE 300 ML BOTTLE PO PRN; MAGNESIUM HYDROX 2400MG/30ML ORAL SUSPENSION 30 ML CUP PO PRN; MENTHOL/PHENOL 1 EACH UD MM PRN; NICOTINE 14 MG/24 HOURS TOPICAL PATCH TD PRN; NICOTINE POLACRILEX 2 MG GUM BC PRN; P-EPHED 60MG/TRIPROLIDI 2.5MG TABLET PO PRN; guaiFENesin 200 MG/10 ML 10 ML UNIT-DOSE CUPS PO PRN
[2018-12-10] MEDS: QUEtiapine FUMARATE 100 MG TABLET (FP) PO SCH (21:29)
[2018-12-10] MEDS: THIAMINE HCL 100 MG TABLET (FP) PO SCH (21:29)
[2018-12-10] MEDS: MELATONIN 5 MG TABLETS PO PRN (21:30)
[2018-12-11] MEDS: PRENATAL VITAMINS W/ FOLIC ACID TABLET (FP) PO SCH (10:51)
[2018-12-11] MEDS: THIAMINE HCL 100 MG TABLET (FP) PO SCH (21:18)
[2018-12-11] MEDS: MELATONIN 5 MG TABLETS PO PRN (21:19)
[2018-12-11] MEDS: QUEtiapine FUMARATE 100 MG TABLET (FP) PO SCH (21:19)
[2018-12-12 07:06] VITALS: BP 123/80; PULSE 56; TEMP 98
[2018-12-12] MEDS: PRENATAL VITAMINS W/ FOLIC ACID TABLET (FP) PO SCH (10:22)
--- NOTE | 2018-12-12 14:11 | PN ---
BHS Progress Note (SOAP) Subjective: Patient is leaving for personal reasons. Objective: 12/12/18 14:09 A+O X3, no neurological deficits noted,lungs clear, heart rate regular, abd soft non-distended, +BS. Medically stable for discharge. Vital Signs (72 hours) 12/10/18 12/11/18 12/11/18 20:09 02:34 03:30 Temperature 98.3 F Pulse Rate 60 Respiratory 16 20 18 Rate Blood Pressure 119/77 12/11/18 12/12/18 12/12/18 07:16 00:30 03:30 Temperature 97.5 F L Pulse Rate 54 L Respiratory 18 20 20 Rate Blood Pressure 121/80 12/12/18 07:05 Temperature 98 F Pulse Rate 56 L Respiratory 18 Rate Blood Pressure 123/80 Assessment: Discharge Diagnoses: Substance Use disorder, chronic Opioid dependence, chronic Cannabis dependence, Chronic GERD Plan: Client [facility] then to [facility]. He receives primary care at a clinic at [address] [place] [address] in the [place], he does not know the name of the clinic or his provider. Refused prescription for Narcan, Prilosec prescription transmitted to [facility]. Encouraged to follow up with aftercare and primary care.
--- NOTE | 2018-12-12 14:21 | PN ---
[facility] Progress Note Note: Patient has decided to leave today. Script for 30 days supply of Seroquel 100 mg po HS is electronically transmitted to [facility] at [address] [place] [id number]
== END 2018-12-12 14:20 | disposition left against medical advice (07) | DRG 770 ==
LOC: YASAS 18:10 → Y3W 18:11
PROVIDERS: ADMIT Neuromusculoskeletal Medicine & OMM; ATTEND Neuromusculoskeletal Medicine & OMM
PROC: HZ42ZZZ Group Counseling for Substance Abuse Treatment, Cognitive-Behavioral (ICD-10-PCS; principal; 2018-12-10)
DX: F11.20 Opioid dependence, uncomplicated (principal); F12.20 Cannabis dependence, uncomplicated; F19.20 Other psychoactive substance dependence, uncomplicated; K21.9 Gastro-esophageal reflux disease without esophagitis; Z59.0 Homelessness

== ENCOUNTER 2019-01-12 13:13 | Inpatient (IN) | payer OTHER ==
[2019-01-12 14:25] VITALS: BMI 30.9
--- NOTE | 2019-01-12 15:15 | HP ---
COWS - Scale Resting Pulse: 0= [place] 80 or Below Sweatin= Beads of Sweat on Face Restless Observation: 0= Sits Still Pupil Size: 0= Normal to Room Light Bone or Joint Aches: 2= Severe Diffuse Aches Runny Nose/ Eye Tearin= Runny Nose/Eyes GI Upset > 30mins: 1= Stomach Cramp Tremor Observation: 2= Slight Tremor Visible Yawning Observation: 1= 1-2x During Session Anxiety or Irritability: 1=Feels Anxious/Irritable Goose Flesh Skin: 3=Piloerection COWS Score: 15 CIWA Score - Admission Criteria OASAS Guidelines: Admission for Medically Managed Detox: Requires at least one of the followin. CIWA greater than 12 2. Seizures within the past 24 hours 3. Delirium tremens within the past 24 hours 4. Hallucinations within the past 24 hours 5. Acute intervention needed for co occurring medical disorder 6. Acute intervention needed for co occurring psychiatric disorder 7. Severe withdrawal that cannot be handled at a lower level of care (continued vomiting, continued diarrhea, abnormal vital signs) requiring intravenous medication and/or fluids 8. Admission ROS [facility] Chief Complaint: "Heroin detox" Allergies/Adverse Reactions: Allergies Allergy/AdvReac Type Severity Reaction Status Date / Time No Known Allergies Allergy Verified 12/10/18 18:29 History of Present Illness: 38y/o male here for heroin detox. Known to this facility, last here 12/14. Has had numerous detox. Denies SI/HI Hx: GERD, insomnia Exam Limitations: No Limitations - Ebola screening Have you traveled outside of the country in the last 21 days: No (N) Have you had contact with anyone from an Ebola affected area: No Do you have a fever: No - Review of Systems Constitutional: No Symptoms Reported EENT: reports: Nose Congestion Respiratory: reports: No Symptoms reported Cardiac: reports: No Symptoms Reported GI: reports: Nausea, Abdominal cramping : reports: No Symptoms Reported Musculoskeletal: reports: Back Pain, Joint Pain, Neck Pain Integumentary: reports: No Symptoms Reported Neuro: reports: Tremors Endocrine: reports: No Symptoms Reported Hematology: reports: No Symptoms Reported Psychiatric: reports: Judgement Intact, Mood/Affect Appropiate Other Systems: Reviewed and Negative Patient History - Patient Medical History Hx Anemia: No Hx Asthma: No Hx Chronic Obstructive Pulmonary Disease (COPD): No Hx Cancer: No Hx Cardiac Disorders: No Hx Congestive Heart Failure: No Hx Hypertension: No Hx Hypercholesterolemia: No Hx Pacemaker: No HX Cerebrovascular Accident: No Hx Seizures: No Hx Diabetes: No Hx Gastrointestinal Disorders: Yes (GERD - Omeprazole) Hx Liver Disease: No Hx Genitourinary Disorders: No Hx Sexually Transmitted Disorders: No Hx Renal Disease (ESRD): No Hx Thyroid Disease: No Hx Human Immunodeficiency Virus (HIV): No (NEGATIVE - MARCH 2018) Hx Hepatitis C: No Hx Depression: Yes (hx lynn ocampo, hospitalized for psych Bx [facility] sep 2018) Hx Suicide Attempt: No (Denies suicidal ideation at this time) Hx Bipolar Disorder: No Hx Schizophrenia: No - Patient Surgical History Past Surgical History: No Hx Neurologic Surgery: No Hx Cataract Extraction: No Hx Cardiac Surgery: No Hx Lung Surgery: No Hx Breast Surgery: No Hx Breast Biopsy: No Hx Abdominal Surgery: No Hx Appendectomy: No Hx Cholecystectomy: No Hx Genitourinary Surgery: No Hx Section: No Hx Orthopedic Surgery: No Anesthesia Reaction: No - PPD History Date: 07/18/18 Results: 0MM - Reproductive History Patient is a Female of Child Bearing Age (11 -55 yrs old): No - Smoking Cessation Smoking history: Current some day smoker Have you smoked in the past 12 months: Yes Aproximately how many cigarettes per day: 2 Hx Chewing Tobacco Use: No Initiated information on smoking cessation: Yes 'Breaking Loose' booklet given: 01/12/19 - Substance & Tx. History Hx Substance Use: Yes Substance Use Type: Heroin Hx Substance Use Treatment: Yes - Substances abused Heroin Substance route: Inhalation Frequency: Daily Amount used: 6-7 bags Age of first use: 37 Date of last use: 01/11/19 Marijuana/Hashish Substance route: Smoking Frequency: 1-3 times last 30 days Amount used: 1 joint Age of first use: 13 Date of last use: 12/03/18 Family Disease History - Family Disease History Family Disease History: Diabetes: Father (living,), Other: Father, Mother ( living, healthy), Brother (one - living - healthy), Sister (one - living - healthy), Son (two - healthy), Daughter (two healthy) Admission Physical Exam BHS - Vital Signs Vital Signs: Vital Signs - 24 hr 01/12/19 14:14 Temperature 97.7 F Pulse Rate 67 Respiratory 18 Rate Blood Pressure 134/84 - Physical General Appearance: Yes: Moderate Distress HEENTM: Yes: Within Normal Limits Respiratory: Yes: Lungs Clear, Normal Breath Sounds, No Respiratory Distress Neck: Yes: No masses,lesions,Nodules, Trachea in good position Breast: Yes: Breast Exam Deferred Cardiology: Yes: Regular Rhythm, Regular Rate, S1, S2 Abdominal: Yes: Normal Bowel Sounds, Non Tender, Soft Genitourinary: Yes: Within Normal Limits Back: Yes: Normal Inspection Musculoskeletal: Yes: full range of Motion, Gait Steady Extremities: Yes: Normal Capillary Refill, Normal Inspection, Normal Range of Motion Neurological: Yes: Fully Oriented, Alert, Motor Strength 5/5 Integumentary: Yes: Normal Color, Dry, Warm - Diagnostic (1) Nicotine dependence Current Visit: No Status: Acute Qualifiers: Nicotine product type: cigarettes Substance use status: in withdrawal Qualified Code(s): F17.213 - Nicotine dependence, cigarettes, with withdrawal (2) Opioid dependence with withdrawal Current Visit: Yes Status: Acute (3) Cannabis dependence Current Visit: Yes Status: Chronic (4) Depression Current Visit: Yes Status: Chronic Qualifiers: Depression Type: unspecified Qualified Code(s): F32.9 - Major depressive disorder, single episode, unspecified (5) GERD (gastroesophageal reflux disease) Current Visit: Yes Status: Chronic Qualifiers: Esophagitis presence: esophagitis presence not specified Qualified Code(s) : K21.9 - Gastro-esophageal reflux disease without esophagitis Cleared for Admission S - Detox or Rehab [facility] Level of Care: Medically Managed Detox Regimen/Protocol: Methadone Breathalyzer - Breathalyzer Breathalyzer: 0 Urine Drug Screen - Test Device Lot number: [id number] Expiration date: 09/27/20 - Control Is test valid?: Yes - Results Drug screen NEGATIVE: No Urine drug screen results: THC-Marijuana, MOP-Opiates Inpatient Rehab Admission - Rehab Decision to Admit Inpatient rehab admission?: No
[2019-01-12] MEDS ORDERED: MENTHOL/PHENOL 1 EACH UD MM PRN (15:23)
[2019-01-12] MEDS ORDERED: ACETAMINOPHEN 325 MG TABLET (FP) PO PRN ×2 (15:23)
[2019-01-12] MEDS ORDERED: MELATONIN 5 MG TABLETS PO PRN (15:23)
[2019-01-12] MEDS ORDERED: MAG HYDROX/AL HYDROX/SIMETH 30 ML UNIT-DOSE CUP PO PRN (15:23)
[2019-01-12] MEDS ORDERED: IBUPROFEN 400 MG TABLET (FP) PO PRN (15:23)
[2019-01-12] MEDS ORDERED: MAGNESIUM HYDROX 2400MG/30ML ORAL SUSPENSION 30 ML CUP PO PRN (15:23)
[2019-01-12] MEDS ORDERED: BISMUTH SUBSALICYLATE 524 MG/30 ML UD PO PRN (15:23)
[2019-01-12] MEDS ORDERED: MAGNESIUM CITRATE 300 ML BOTTLE PO PRN (15:23)
[2019-01-12] MEDS: METHOCARBAMOL 500 MG TABLET PO PRN (16:35)
[2019-01-12] MEDS: cloNIDine HCL 0.1 MG TABLET PO PRN (16:35)
[2019-01-12] MEDS: THIAMINE HCL 100 MG TABLET (FP) PO SCH (22:12)
[2019-01-12] MEDS ORDERED: METHADONE HCL 10 MG TABLET (FOR DETOX USE ONLY) PO ONE (23:00)
[2019-01-13] MEDS ORDERED: METHADONE HCL 5 MG TABLET (FOR DETOX USE ONLY) PO ONE ×2 (10:00→13:00)
[2019-01-13] MEDS: PRENATAL VITAMINS W/ FOLIC ACID TABLET (FP) PO SCH (10:08)
--- NOTE | 2019-01-13 10:08 | CONSULT ---
[facility] Psychiatric Consult - Data Date of interview: 01/13/19 Admission source: [facility] Identifying data: 38 y/o male single, unemployed, homeless, father of 4, no source of income or support re-admitted for Heroin, and Marijuana deprendence Substance Abuse History: Recently discharged from the unit last month and relapsed on the same drugs This is one of his nulerous past Detox and Reahb treaiments to [facility]. He snores heroin daily and smokes marijuana. See addiction counselor note for more detailed drug history Medical History: GERD treated with Omeprazole Psychiatric History: Patient feels sad depressed and anioxus, denies kamini,. He denies prior psychiatric hospitalization,he claimed that he is treated with mood stabilizers Depakote and Seroquel at an out patient clinic program. He withdraws from his Depakote due to side effects but continues with Seroquel 100 mg po q hs. He reported a prior suicide ideation, had thought of OD pills. Feels sad and depressed due to lack of support, poverty and unemployment and his chronic substance use. He denies insomnia, anorexia, denies suicidal or homicidal ideation Physical/Sexual Abuse/Trauma History: Denies history of abuse or trauma Mental Status Exam - Mental Status Exam Alert and Oriented to: Place, Person Cognitive Function: Good Patient Appearance: Well Groomed Mood: Euthymic Affect: Appropriate Patient Behavior: Appropriate, Cooperative Speech Pattern: Appropriate Voice Loudness: Normal Thought Process: Intact Hallucinations: Denies Suicidal Ideation: Denies Homicidal Ideation: Denies Insight/Judgement: Poor Sleep: Fair Appetite: Good Muscle strength/Tone: Normal Gait/Station: Normal Psychiatric Findings - Problem List ([place] 1, 2,3) (1) Cannabis dependence Current Visit: Yes Status: Chronic (2) Depression Current Visit: Yes Status: Chronic Qualifiers: Depression Type: unspecified Qualified Code(s): F32.9 - Major depressive disorder, single episode, unspecified (3) GERD (gastroesophageal reflux disease) Current Visit: Yes Status: Chronic Qualifiers: Esophagitis presence: esophagitis presence not specified Qualified Code(s) : K21.9 - Gastro-esophageal reflux disease without esophagitis (4) Nicotine dependence Current Visit: No Status: Acute Qualifiers: Nicotine product type: cigarettes Substance use status: in withdrawal Qualified Code(s): F17.213 - Nicotine dependence, cigarettes, with withdrawal (5) Opioid dependence Current Visit: No Status: Acute Qualifiers: Substance use status: uncomplicated Qualified Code(s): F11.20 - Opioid dependence, uncomplicated (6) Substance induced mood disorder Current Visit: No Status: Suspected - Initial Treatment Plan Initial Treatment Plan: Psychoeduation. Seroquel 100 mg po qhs. Continue in patient Detox treatment
[2019-01-13 10:18] LABS: HEMATOCRIT 40.4 % (35.4-49); HEMOGLOBIN 13.2 GM/dL (11.7-16.9); MCH 22.9 pg (25.7-33.7); MCHC 32.7 g/dl (32.0-35.9); MEAN PLT VOLUME 7.1 fl (7.5-11.1); PLATELET COUNT 456 K/MM3 (134-434); RBC 5.77 M/mm3 (4.00-5.60); RDW 20.2 % (11.9-15.9); WHITE BLOOD COUNT 7.6 K/mm3 (4.0-10.0)
[2019-01-13 10:20] LABS: ALBUMIN 3.6 g/dl (3.4-5.0); BILIRUBIN,TOTAL 0.5 mg/dL (0.2-1); CALCIUM 9.3 mg/dL (8.5-10.1); POTASSIUM 4.3 mmol/L (3.5-5.1); TOT PROT 7.9 g/dl (6.4-8.2)
[2019-01-13] MEDS: cloNIDine HCL 0.1 MG TABLET PO PRN (10:31)
[2019-01-13] MEDS: METHOCARBAMOL 500 MG TABLET PO PRN (13:50)
--- NOTE | 2019-01-13 17:00 | PN ---
[facility] COWS - Scale Resting Pulse: 0= [place] 80 or Below Sweatin= Chills/Flushing Restless Observation: 3= Extraneous Movement Pupil Size: 0= Normal to Room Light Bone or Joint Aches: 2= Severe Diffuse Aches Runny Nose/ Eye Tearin= Runny Nose/Eyes GI Upset > 30mins: 3= Vomiting/Diarrhea Tremor Observation of Outstretched Hands: 2= Slight Tremor Visible Yawning Observation: 0= None Anxiety or Irritability: 2=Irritable/Anxious Goose Flesh Skin: 0=Smooth Skin COWS Score: 15 BHS Progress Note (SOAP) Subjective: Sweating, runny nose, stomach cramps, anxious, agitation. Patient requesting more methadone stating that he used a lot of heroin and was only given 10mg of methadone yesterday and 15mg today. Patient stated his methadone dose not helping him and he is miserable with withdrawal symptoms. Patient agreed to have methadone doses changed. Objective: 01/13/19 16:56 Last Vital Signs Temp Pulse Resp BP Pulse Ox 98.3 F 66 18 139/82 01/13/19 14:26 01/13/19 14:26 01/13/19 14:26 01/13/19 14:26 Laboratory Tests 01/13/19 01/13/19 01/13/19 07:50 07:50 07:50 WBC 7.6 RBC 5.77 H Hgb 13.2 Hct 40.4 MCV 70.0 L MCH 22.9 L MCHC 32.7 RDW 20.2 H Plt Count 456 H MPV 7.1 L Sodium 137 Potassium 4.3 Chloride 103 Carbon Dioxide 27 Anion Gap 8 BUN 17 Creatinine 1.0 Est GFR (CKD-EPI)AfAm 109.40 Est GFR (CKD-EPI)NonAf 94.39 Random Glucose 92 Calcium 9.3 Total Bilirubin 0.5 AST 17 ALT 25 Alkaline Phosphatase 84 Total Protein 7.9 Albumin 3.6 RPR Titer Nonreactive Labs reviewed: abnormal CBC Assessment: 01/13/19 16:57 Withdrawal symptoms Noted with abnormal CBC Plan: Continue detox Encouraged PO water hydration Abnormal CBC: repeat CBC in AM Methadone schedule adjusted due to increased withdrawal symptoms. Methadone 5mg PO x 1 dose plus 15mg dose for total of 20mg today, methadone 15mg tomorrow then 10mg on Monday and 5mg on Monday
[2019-01-13] MEDS ORDERED: QUEtiapine FUMARATE 100 MG TABLET (FP) PO SCH (22:00)
[2019-01-13] MEDS: THIAMINE HCL 100 MG TABLET (FP) PO SCH (22:30)
[2019-01-14 09:37] VITALS: BP 118/56; PULSE 61; TEMP 98.2
[2019-01-14] MEDS ORDERED: METHADONE HCL 5 MG TABLET (FOR DETOX USE ONLY) PO ONE (10:00)
[2019-01-14] MEDS ORDERED: METHADONE HCL 10 MG TABLET (FOR DETOX USE ONLY) PO ONE (10:00)
[2019-01-14] MEDS: PRENATAL VITAMINS W/ FOLIC ACID TABLET (FP) PO SCH (10:19)
--- NOTE | 2019-01-14 13:03 | PN ---
S Progress Note Note: pt refused to continue with detox; pt refused to express his reason for leaving ; pt signed out ama.
--- NOTE | 2019-01-14 13:04 | DS ---
[facility] Detox Discharge Summary Admission Date: 01/12/19 - History Present History: Cannabis Dependence, Opioid Dependence - Physical Exam Results Vital Signs: Vital Signs Temperature 98.2 F 01/14/19 09:37 Pulse Rate 61 01/14/19 09:37 Respiratory Rate 18 01/14/19 09:37 Blood Pressure 118/56 L 01/14/19 09:37 O2 Sat by Pulse Oximetry (%) - Medication Discharge Medications: Ambulatory Orders Naloxone HCl [Narcan] 4 mg NS ASDIR PRN 12/10/18 Omeprazole 40 mg PO DAILY PRN #7 capsule.dr 12/12/18 Quetiapine Fumarate [Seroquel] 100 mg PO HS #30 tablet 12/12/18 - Diagnosis (1) Cannabis dependence Current Visit: Yes Status: Chronic (2) Depression Current Visit: Yes Status: Chronic Qualifiers: Depression Type: unspecified Qualified Code(s): F32.9 - Major depressive disorder, single episode, unspecified (3) Depressive disorder Current Visit: No Status: Acute (4) Erythrocytosis Current Visit: No Status: Acute (5) GERD (gastroesophageal reflux disease) Current Visit: Yes Status: Chronic Qualifiers: Esophagitis presence: esophagitis presence not specified Qualified Code(s) : K21.9 - Gastro-esophageal reflux disease without esophagitis (6) Nicotine dependence Current Visit: No Status: Acute Qualifiers: Nicotine product type: cigarettes Substance use status: in withdrawal Qualified Code(s): F17.213 - Nicotine dependence, cigarettes, with withdrawal (7) Opioid dependence Current Visit: No Status: Acute Qualifiers: Substance use status: uncomplicated Qualified Code(s): F11.20 - Opioid dependence, uncomplicated (8) Opioid dependence with withdrawal Current Visit: Yes Status: Acute (9) Substance induced mood disorder Current Visit: No Status: Suspected (10) Substance induced mood disorder Current Visit: No Status: Ruled-out (11) Substance-induced sleep disorder Current Visit: No Status: Acute (12) Thrombocytosis Current Visit: No Status: Acute - AMA Did Patient Leave Against Medical Advice: Yes (declined rehab; signed out)
[2019-01-15] MEDS ORDERED: METHADONE HCL 5 MG TABLET (FOR DETOX USE ONLY) PO ONE (06:00)
[2019-01-15] MEDS ORDERED: METHADONE HCL 10 MG TABLET (FOR DETOX USE ONLY) PO ONE (10:00)
[2019-01-16] MEDS ORDERED: METHADONE HCL 5 MG TABLET (FOR DETOX USE ONLY) PO ONE (06:00)
== END 2019-01-14 13:13 | disposition left against medical advice (07) | DRG 770 ==
LOC: YASAS 13:13 → Y6N 14:58
PROVIDERS: ADMIT Surgery; ATTEND Surgery
PROC: HZ2ZZZZ Detoxification Services for Substance Abuse Treatment (ICD-10-PCS; principal; 2019-01-12)
DX: F11.23 Opioid dependence with withdrawal (principal); F12.20 Cannabis dependence, uncomplicated; F17.213 Nicotine dependence, cigarettes, with withdrawal; F19.24 Other psychoactive substance dependence with psychoactive substance-induced mood disorder; F19.282 Other psychoactive substance dependence with psychoactive substance-induced sleep disorder; F39 Unspecified mood [affective] disorder; F32.9 Major depressive disorder, single episode, unspecified; K21.9 Gastro-esophageal reflux disease without esophagitis; D75.1 Secondary polycythemia; D47.3 Essential (hemorrhagic) thrombocythemia; Z59.0 Homelessness
CPT/HCPCS: 36415; 80053; 85027; 86593; J0735

== ENCOUNTER 2019-08-14 11:14 | Inpatient (IN) | payer OTHER ==
[2019-08-14 11:35] VITALS: BMI 22.9
--- NOTE | 2019-08-14 13:36 | HP ---
COWS - Scale Resting Pulse: 0= [place] 80 or Below Sweatin= Chills/Flushing Restless Observation: 1= Difficult to Sit Still Pupil Size: 1= Pupils >than Normal Bone or Joint Aches: 2= Severe Diffuse Aches Runny Nose/ Eye Tearin= Nasal Congestion GI Upset > 30mins: 1= Stomach Cramp Tremor Observation: 0= None Yawning Observation: 1= 1-2x During Session Anxiety or Irritability: 1=Feels Anxious/Irritable Goose Flesh Skin: 0=Smooth Skin COWS Score: 9 CIWA Score - Admission Criteria OASAS Guidelines: Admission for Medically Managed Detox: Requires at least one of the followin. CIWA greater than 12 2. Seizures within the past 24 hours 3. Delirium tremens within the past 24 hours 4. Hallucinations within the past 24 hours 5. Acute intervention needed for co occurring medical disorder 6. Acute intervention needed for co occurring psychiatric disorder 7. Severe withdrawal that cannot be handled at a lower level of care (continued vomiting, continued diarrhea, abnormal vital signs) requiring intravenous medication and/or fluids 8. Admitting History and Physical - Admission Chief Complaint: 39 y/o m pt wants to stop using heroin , is seeking detox . History of Present Illness: Pt with h/o heroin dep , started using heroin 2yrs ago in 2017. Pt states he began using heroin because he was depressed and it made him feel better. The pt 's depression is now improved but now he is concerned about his increasing use. The pt denies any overdoses. The pt has been to detox at [facility] and [facility]. The pt use heroin via nasal sniffing and not by IV . He reports using 2 bundles (20 bags) per day over the past 5 months. History Source: Patient Limitations to Obtaining History: No Limitations - Past Medical History Gastrointestinal: Yes: GERD, Other (abdominal creamps) Psych: Yes: Addictions (opioids/heroin ;), Anxiety, Depression Musculoskeletal: Yes: Chronic low back pain, Other (neck and shoulder pain on left) ENT: Yes: Other (rhinitis) - Past Surgical History Past Surgical History: Yes: None - Smoking History Smoking history: Current some day smoker Have you smoked in the past 12 months: Yes Aproximately how many cigarettes per day: 2 - Alcohol/Substance Use Hx Alcohol Use: No History of Substance Use: reports: Heroin, Marijuana Date of Last Use: 08/13/19 (2 bundles ) - Social History Usual Living Arrangement: Yes: Alone, Other (homeless) Do you think of yourself as: Straight/Heterosexual History of Recent Travel: No Admission [facility] Allergies/Adverse Reactions: Allergies Allergy/AdvReac Type Severity Reaction Status Date / Time No Known Allergies Allergy Verified 08/14/19 11:31 - Ebola screening Have you traveled outside of the country in the last 21 days: No (N) Have you had contact with anyone from an Ebola affected area: No Do you have a fever: No - Review of Systems Constitutional: Loss of Appetite, Malaise, Changes in sleep, Unintentional Wgt. Loss EENT: reports: No Symptoms Reported Respiratory: reports: No Symptoms reported Cardiac: reports: No Symptoms Reported GI: reports: Vomiting, Indigestion, Abdominal cramping : reports: No Symptoms Reported Musculoskeletal: reports: Muscle Pain (LEFT NECK AND SHOULDER) Integumentary: reports: No Symptoms Reported Neuro: reports: Headache (MILD) Endocrine: reports: No Symptoms Reported Hematology: reports: No Symptoms Reported Psychiatric: reports: Anxious, Depressed Other Systems: Reviewed and Negative Patient History - Patient Medical History Hx Anemia: No Hx Asthma: No Hx Chronic Obstructive Pulmonary Disease (COPD): No Hx Cancer: No Hx Cardiac Disorders: No Hx Congestive Heart Failure: No Hx Hypertension: No Hx Hypercholesterolemia: No Hx Pacemaker: No HX Cerebrovascular Accident: No Hx Seizures: No Hx Diabetes: No Hx Gastrointestinal Disorders: No Hx Liver Disease: No Hx Genitourinary Disorders: No Hx Sexually Transmitted Disorders: No Hx Renal Disease (ESRD): No Hx Thyroid Disease: No Hx Human Immunodeficiency Virus (HIV): No (NEGATIVE - MARCH 2018) Hx Hepatitis C: No Hx Depression: Yes Hx Suicide Attempt: No Hx Bipolar Disorder: No Hx Schizophrenia: No - Patient Surgical History Past Surgical History: No Hx Neurologic Surgery: No Hx Cataract Extraction: No Hx Cardiac Surgery: No Hx Lung Surgery: No Hx Breast Surgery: No Hx Breast Biopsy: No Hx Abdominal Surgery: No Hx Appendectomy: No Hx Cholecystectomy: No Hx Genitourinary Surgery: No Hx Section: No Hx Orthopedic Surgery: No Anesthesia Reaction: No - PPD History Documented Results: Negative w/proof Date: 07/18/18 Results: 0MM - Reproductive History Patient is a Female of Child Bearing Age (11 -55 yrs old): No - Smoking Cessation Smoking history: Current some day smoker Have you smoked in the past 12 months: Yes Aproximately how many cigarettes per day: 2 Hx Chewing Tobacco Use: No Initiated information on smoking cessation: Yes 'Breaking Loose' booklet given: 08/14/19 - Substance & Tx. History Hx Alcohol Use: No Hx Substance Use: Yes Substance Use Type: Heroin, Marijuana Hx Substance Use Treatment: Yes (Oly[facility] Pineda [facility]) - Substances abused Heroin Substance route: Inhalation Frequency: Daily Amount used: 3 BUNDLES Age of first use: 37 Date of last use: 08/14/19 Marijuana/Hashish Substance route: Smoking Frequency: 1-3 times last 30 days Amount used: 1 joint Age of first use: 13 Date of last use: 07/24/19 Admission Physical Exam BHS - Vital Signs Vital Signs: Vital Signs - 24 hr 08/14/19 11:25 Temperature 98.2 F Pulse Rate 50 L Respiratory 18 Rate Blood Pressure 130/80 - Physical General Appearance: Yes: Nourished, Obese, Irritable, Anxious HEENTM: Yes: EOMI, Hearing grossly Normal, Normocephalic, Normal Voice, JAMMIE Respiratory: Yes: Lungs Clear Neck: Yes: No masses,lesions,Nodules, Trachea in good position, Other (pain on lateral rt movement) Breast: Yes: Within Normal Limits Cardiology: Yes: Regular Rhythm, S1, S2, Bradycardia Abdominal: Yes: Increased Bowel Sounds Genitourinary: Yes: Within Normal Limits Back: Yes: Decreased Range of Motion (lower back discomfort) Musculoskeletal: Yes: Back pain, Muscle Pain (left shoulder) Extremities: Yes: Within Normal Limits 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9 - Major depressive disorder, single episode, unspecified (5) GERD (gastroesophageal reflux disease) Current Visit: Yes Status: Chronic Qualifiers: Esophagitis presence: esophagitis presence not specified Qualified Code(s) : K21.9 - Gastro-esophageal reflux disease without esophagitis Cleared for Admission BHS - Detox or Rehab [facility] Level of Care: Medically Managed Detox Regimen/Protocol: Methadone/Valium Breathalyzer - Breathalyzer Breathalyzer: 0 Urine Drug Screen - Test Device Lot number: [id number] Expiration date: 09/27/20 - Control Is test valid?: Yes - Results Drug screen NEGATIVE: No Urine drug screen results: THC-Marijuana, MOP-Opiates Inpatient Rehab Admission - Rehab Decision to Admit Inpatient rehab admission?: No
[2019-08-14] MEDS ORDERED: hydrOXYzine PAMOATE 25 MG CAPSULE (FP) PO PRN (14:01)
[2019-08-14] MEDS ORDERED: MENTHOL/PHENOL 1 EACH UD MM PRN (14:01)
[2019-08-14] MEDS ORDERED: MELATONIN 5 MG TABLETS PO PRN (14:01)
[2019-08-14] MEDS ORDERED: BISMUTH SUBSALICYLATE 262 MG/15 ML BTL PO PRN (14:01)
[2019-08-14] MEDS ORDERED: MAGNESIUM HYDROX 2400MG/30ML ORAL SUSPENSION 30 ML CUP PO PRN (14:01)
[2019-08-14] MEDS ORDERED: ACETAMINOPHEN 325 MG TABLET (FP) PO PRN ×2 (14:01)
[2019-08-14] MEDS ORDERED: MAGNESIUM CITRATE 300 ML BOTTLE PO PRN (14:01)
[2019-08-14] MEDS ORDERED: MAG HYDROX/AL HYDROX/SIMETH 30 ML UNIT-DOSE CUP PO PRN (14:01)
[2019-08-14] MEDS ORDERED: METHADONE HCL 10 MG TABLET (FOR DETOX USE ONLY) PO ONE ×2 (14:45→23:00)
[2019-08-14] MEDS ORDERED: PANTOPRAZOLE 40 MG TABLET (FP) PO ONE (15:26)
[2019-08-14] MEDS ORDERED: METHADONE HCL 5 MG TABLET (FOR DETOX USE ONLY) PO ONE (15:48)
[2019-08-14] MEDS: BACLOFEN 10 MG TABLET (FP) PO PRN (19:14)
[2019-08-14] MEDS ORDERED: METHADONE HCL 10 MG TABLET (FOR DETOX USE ONLY) ONE (21:34)
[2019-08-14] MEDS ORDERED: METHADONE HCL 5 MG TABLET (FOR DETOX USE ONLY) ONE (21:35)
[2019-08-14] MEDS: THIAMINE HCL 100 MG TABLET (FP) PO SCH (22:18)
[2019-08-14] MEDS: cloNIDine HCL 0.1 MG TABLET PO PRN (22:18)
[2019-08-14] MEDS: METHOCARBAMOL 500 MG TABLET PO PRN (22:21)
[2019-08-14] MEDS ORDERED: METHADONE 10 MG, METHADONE 5 MG PO ONE (23:00)
[2019-08-14] MEDS ORDERED: METHADONE (DETOX) 10 MG, METHADONE (DETOX) 5 MG PO ONE (23:00)
[2019-08-15] MEDS: METHOCARBAMOL 500 MG TABLET PO PRN ×2 (07:13→22:33)
[2019-08-15] MEDS: IBUPROFEN 400 MG TABLET (FP) PO PRN ×2 (07:13→22:35)
[2019-08-15] MEDS ORDERED: METHADONE HCL 10 MG TABLET (FOR DETOX USE ONLY) ONE (08:51)
[2019-08-15] MEDS ORDERED: METHADONE HCL 5 MG TABLET (FOR DETOX USE ONLY) ONE (08:51)
--- NOTE | 2019-08-15 09:45 | PN ---
[facility] COWS - Scale Resting Pulse: 0= [place] 80 or Below Sweatin= Chills/Flushing Restless Observation: 0= Sits Still Pupil Size: 1= Pupils >than Normal Bone or Joint Aches: 1= Mild Discomfort Runny Nose/ Eye Tearin= Runny Nose/Eyes GI Upset > 30mins: 1= Stomach Cramp Tremor Observation of Outstretched Hands: 1= Tremor [place], Not Seen Yawning Observation: 0= None Anxiety or Irritability: 1=Feels Anxious/Irritable Goose Flesh Skin: 0=Smooth Skin COWS Score: 8 B[facility] Progress Note (SOAP) Subjective: 39 years old male admitted on 08/14/19 for opiate withdrawal sx management treating with methadone detox regimen ate breakfast tolerated food and fluid well ambulating on hallway social with peers in day room discuss medication assisted treatment program and sampler pickup narcan from pharmacy Objective: 08/15/19 09:44 Vital Signs Temperature 97.8 F 08/15/19 09:08 Pulse Rate 50 L 08/15/19 09:08 Respiratory Rate 18 08/15/19 09:08 Blood Pressure 135/82 08/15/19 09:08 O2 Sat by Pulse Oximetry (%) 08/15/19 09:44 lab pending 08/15/19 09:47 5th inpatient detox admission can not locate ekg order ekg x 1 Assessment: 08/15/19 09:47 opiate withdrawal sx Plan: methadone regimen
[2019-08-15 09:52] LABS: HEMATOCRIT 39.7 % (35.4-49); HEMOGLOBIN 12.8 GM/dL (11.7-16.9); MCH 23.4 pg (25.7-33.7); MCHC 32.4 g/dl (32.0-35.9); MEAN CELL VOLUME 72.4 fl (80-96); MEAN PLT VOLUME 7.2 fl (7.5-11.1); PLATELET COUNT 401 K/MM3 (134-434); RBC 5.48 M/mm3 (4.00-5.60); RDW 20.7 % (11.9-15.9); WHITE BLOOD COUNT 6.7 K/mm3 (4.0-10.0)
[2019-08-15] MEDS ORDERED: METHADONE (DETOX) 20 MG, METHADONE (DETOX) 5 MG PO ONE (10:00)
[2019-08-15] MEDS: PRENATAL VITAMINS W/ FOLIC ACID TABLET (FP) PO SCH (10:03)
[2019-08-15] MEDS: PANTOPRAZOLE 40 MG TABLET (FP) PO SCH (10:03)
[2019-08-15 10:37] LABS: ALBUMIN 3.4 g/dl (3.4-5.0); BILIRUBIN,TOTAL 0.4 mg/dL (0.2-1); BLOOD UREA NITROGEN 15.6 mg/dL (7-18); CALCIUM 9.1 mg/dL (8.5-10.1); CREATININE 0.9 mg/dL (0.55-1.3); POTASSIUM 4.2 mmol/L (3.5-5.1); TOT PROT 7.2 g/dl (6.4-8.2)
--- NOTE | 2019-08-15 12:00 | EKG ---
Test Reason : Blood Pressure : / mmHG Vent. Rate : 051 BPM Atrial Rate : 051 BPM P-R Int : 150 ms QRS Dur : 090 ms QT Int : 400 ms P-R-T Axes : -12 -40 -14 degrees QTc Int : 368 ms SINUS BRADYCARDIA LEFT AXIS DEVIATION NONSPECIFIC T WAVE ABNORMALITY ABNORMAL ECG NO PREVIOUS ECGS AVAILABLE Confirmed by MARTELL BERMEO MD ([id number]) on 08/15/2019 11:59:51 AM Referred By: Confirmed By:MARTELL BERMEO MD
[2019-08-15] MEDS: BACLOFEN 10 MG TABLET (FP) PO PRN (14:06)
--- NOTE | 2019-08-15 14:20 | PN ---
AL[facility]HE[facility] Progress Note Note: received medical doctor nuclear medicine and nurse territory outside sales manager called that the patient is taking psychotropic medication by history chart reviewed patient was taking seroquel 100 mg po hs daily by history one dose of seroquel 100 mg po hs patient will be evaluated by the psychiatrist when available
[2019-08-15] MEDS ORDERED: QUEtiapine FUMARATE 100 MG TABLET (FP) PO ONE (22:00)
[2019-08-15] MEDS: THIAMINE HCL 100 MG TABLET (FP) PO SCH (22:08)
[2019-08-16] MEDS: METHOCARBAMOL 500 MG TABLET PO PRN ×2 (06:53→22:29)
[2019-08-16] MEDS ORDERED: METHADONE HCL 10 MG TABLET (FOR DETOX USE ONLY) PO ONE (10:00)
[2019-08-16] MEDS: PRENATAL VITAMINS W/ FOLIC ACID TABLET (FP) PO SCH (10:10)
[2019-08-16] MEDS: PANTOPRAZOLE 40 MG TABLET (FP) PO SCH (10:10)
--- NOTE | 2019-08-16 10:24 | PN ---
[facility] COWS - Scale Resting Pulse: 0= PA 80 or Below Sweatin= Chills/Flushing Restless Observation: 1= Difficult to Sit Still Pupil Size: 0= Normal to Room Light Bone or Joint Aches: 1= Mild Discomfort Runny Nose/ Eye Tearin= None GI Upset > 30mins: 0= None Tremor Observation of Outstretched Hands: 1= Tremor [place], Not Seen Yawning Observation: 0= None Anxiety or Irritability: 2=Irritable/Anxious Goose Flesh Skin: 0=Smooth Skin COWS Score: 6 B[facility] Progress Note (SOAP) Subjective: c/o of interrupted sleep, chills, anxiety Objective: 08/16/19 10:24 Vital Signs Temperature 98.3 F 08/16/19 09:46 Pulse Rate 56 L 08/16/19 09:46 Respiratory Rate 16 08/16/19 09:46 Blood Pressure 119/78 08/16/19 09:46 O2 Sat by Pulse Oximetry (%) Laboratory Last Values WBC 6.7 K/mm3 (4.0-10.0) 08/15/19 08:00 RBC 5.48 M/mm3 (4.00-5.60) 08/15/19 08:00 Hgb 12.8 GM/dL (11.7-16.9) 08/15/19 08:00 Hct 39.7 % (35.4-49) 08/15/19 08:00 MCV 72.4 fl (80-96) L 08/15/19 08:00 MCH 23.4 pg (25.7-33.7) L 08/15/19 08:00 MCHC 32.4 g/dl (32.0-35.9) 08/15/19 08:00 RDW 20.7 % (11.9-15.9) H 08/15/19 08:00 Plt Count 401 K/MM3 (134-434) 08/15/19 08:00 MPV 7.2 fl (7.5-11.1) L 08/15/19 08:00 Sodium 140 mmol/L (136-145) 08/15/19 08:00 Potassium 4.2 mmol/L (3.5-5.1) 08/15/19 08:00 Chloride 104 mmol/L (98-107) 08/15/19 08:00 Carbon Dioxide 29 mmol/L (21-32) 08/15/19 08:00 Anion Gap 7 MMOL/L (8-16) L 08/15/19 08:00 BUN 15.6 mg/dL (7-18) 08/15/19 08:00 Creatinine 0.9 mg/dL (0.55-1.3) 08/15/19 08:00 Est GFR (CKD-EPI)AfAm 123.39 08/15/19 08:00 Est GFR (CKD-EPI)NonAf 106.46 08/15/19 08:00 Random Glucose 85 mg/dL (74-106) 08/15/19 08:00 Calcium 9.1 mg/dL (8.5-10.1) 08/15/19 08:00 Total Bilirubin 0.4 mg/dL (0.2-1) 08/15/19 08:00 AST 13 U/L (15-37) L 08/15/19 08:00 ALT 20 U/L (13-61) 08/15/19 08:00 Alkaline Phosphatase 85 U/L (45-117) 08/15/19 08:00 Total Protein 7.2 g/dl (6.4-8.2) 08/15/19 08:00 Albumin 3.4 g/dl (3.4-5.0) 08/15/19 08:00 RPR Titer Nonreactive (NONREACTIVE) 08/15/19 08:00 Assessment: 08/16/19 11:57 Patient Aox3 no acute distress no adventitious breath sounds full ROM no gait disturbance withdrawal sx Plan: Patient requested to be discharge one day early re: tomorrow if stable d/c in the AM increase fluids continue detox continue to monitor
--- NOTE | 2019-08-16 10:45 | EKG ---
Test Reason : Blood Pressure : / mmHG Vent. Rate : 045 BPM Atrial Rate : 045 BPM P-R Int : 152 ms QRS Dur : 094 ms QT Int : 442 ms P-R-T Axes : 002 -28 007 degrees QTc Int : 382 ms SINUS BRADYCARDIA MINIMAL VOLTAGE CRITERIA FOR LVH, MAY BE NORMAL VARIANT WHEN COMPARED WITH ECG OF 14-AUG-2019 15:43, NO SIGNIFICANT CHANGE WAS FOUND Confirmed by GAB EVERETT MD ([id number]) on 08/16/2019 10:44:57 AM Referred By: Confirmed By:GAB EVERETT MD
--- NOTE | 2019-08-16 11:21 | DS ---
[facility] Detox Discharge Summary Admission Date: 08/14/19 - Physical Exam Results Vital Signs: Vital Signs Temperature 98.3 F 08/16/19 09:46 Pulse Rate 56 L 08/16/19 09:46 Respiratory Rate 16 08/16/19 09:46 Blood Pressure 119/78 08/16/19 09:46 O2 Sat by Pulse Oximetry (%) - Medication Discharge Medications: Ambulatory Orders Naloxone HCl [Narcan] 4 mg NS ASDIR PRN 12/10/18 Omeprazole 40 mg PO DAILY PRN #7 capsule. 12/12/18 Quetiapine Fumarate [Seroquel -] 100 mg PO HS #30 tablet 12/12/18
--- NOTE | 2019-08-16 14:30 | PN ---
[facility] Progress Note Note: Psychiatry Attending's note : Called by nurse Mr Braden. Reason : patient is requesting a modified dose of seroquel. Chart reviewed. Patient seen. Complaint of anxiety + insomnia : validated. Mr Ayala is already known to this keno writer. Feels anxious and jittery. Needs " some seroquel in daytime ". Psychoeducation and reassurance provided. Patient responded favorably to teaching (side effects/benefits). Intervention : seroquel 50 mg po bid. Ordered. First dose NOW.
[2019-08-16] MEDS: QUEtiapine FUMARATE 50 MG TABLET PO SCH ×2 (15:44→22:29)
[2019-08-16] MEDS: THIAMINE HCL 100 MG TABLET (FP) PO SCH (22:28)
[2019-08-16] MEDS: cloNIDine HCL 0.1 MG TABLET PO PRN (22:29)
[2019-08-17] MEDS: METHOCARBAMOL 500 MG TABLET PO PRN (06:30)
[2019-08-17] MEDS: IBUPROFEN 400 MG TABLET (FP) PO PRN (06:39)
[2019-08-17 09:17] VITALS: BP 140/92; PULSE 55; TEMP 97.6
[2019-08-17] MEDS ORDERED: METHADONE HCL 10 MG TABLET (FOR DETOX USE ONLY) ONE (09:18)
[2019-08-17] MEDS ORDERED: METHADONE HCL 5 MG TABLET (FOR DETOX USE ONLY) ONE (09:18)
[2019-08-17] MEDS: PANTOPRAZOLE 40 MG TABLET (FP) PO SCH (09:22)
[2019-08-17] MEDS: PRENATAL VITAMINS W/ FOLIC ACID TABLET (FP) PO SCH (09:23)
[2019-08-17] MEDS: QUEtiapine FUMARATE 50 MG TABLET PO SCH (09:24)
[2019-08-17] MEDS ORDERED: METHADONE (DETOX) 10 MG, METHADONE (DETOX) 5 MG PO ONE (10:00)
--- NOTE | 2019-08-17 10:27 | DS ---
[facility] Detox Discharge Summary Admission Date: 08/14/19 Discharge Date: 08/17/19 - History Present History: Cannabis Dependence, Opioid Dependence Additional Comments: Pt is medically cleared and is discharged today. Pt completed the detox protocol. Pt is encouraged to follow-up with an outpatient CD program and also to follow-up with his pmd. Pt verbalized understanding. Pt is alert and oriented x3 and in no acute respiratory distress. Pertinent Past History: H/O heroin and cannabis use disorder. - Physical Exam Results Vital Signs: Vital Signs Temperature 97.6 F 08/17/19 09:14 Pulse Rate 55 L 08/17/19 09:14 Respiratory Rate 18 08/17/19 09:14 Blood Pressure 140/92 08/17/19 09:14 O2 Sat by Pulse Oximetry (%) Vital Signs 08/17/19 09:14 Temperature 97.6 F Pulse Rate 55 L Respiratory 18 Rate Blood Pressure 140/92 Laboratory Last Values WBC 6.7 K/mm3 (4.0-10.0) 08/15/19 08:00 RBC 5.48 M/mm3 (4.00-5.60) 08/15/19 08:00 Hgb 12.8 GM/dL (11.7-16.9) 08/15/19 08:00 Hct 39.7 % (35.4-49) 08/15/19 08:00 MCV 72.4 fl (80-96) L 08/15/19 08:00 MCH 23.4 pg (25.7-33.7) L 08/15/19 08:00 MCHC 32.4 g/dl (32.0-35.9) 08/15/19 08:00 RDW 20.7 % (11.9-15.9) H 08/15/19 08:00 Plt Count 401 K/MM3 (134-434) 08/15/19 08:00 MPV 7.2 fl (7.5-11.1) L 08/15/19 08:00 Sodium 140 mmol/L (136-145) 08/15/19 08:00 Potassium 4.2 mmol/L (3.5-5.1) 08/15/19 08:00 Chloride 104 mmol/L (98-107) 08/15/19 08:00 Carbon Dioxide 29 mmol/L (21-32) 08/15/19 08:00 Anion Gap 7 MMOL/L (8-16) L 08/15/19 08:00 BUN 15.6 mg/dL (7-18) 08/15/19 08:00 Creatinine 0.9 mg/dL (0.55-1.3) 08/15/19 08:00 Est GFR (CKD-EPI)AfAm 123.39 08/15/19 08:00 Est GFR (CKD-EPI)NonAf 106.46 08/15/19 08:00 Random Glucose 85 mg/dL (74-106) 08/15/19 08:00 Calcium 9.1 mg/dL (8.5-10.1) 08/15/19 08:00 Total Bilirubin 0.4 mg/dL (0.2-1) 08/15/19 08:00 AST 13 U/L (15-37) L 08/15/19 08:00 ALT 20 U/L (13-61) 08/15/19 08:00 Alkaline Phosphatase 85 U/L (45-117) 08/15/19 08:00 Total Protein 7.2 g/dl (6.4-8.2) 08/15/19 08:00 Albumin 3.4 g/dl (3.4-5.0) 08/15/19 08:00 RPR Titer Nonreactive (NONREACTIVE) 08/15/19 08:00 Labs noted. Pertinent Admission Physical Exam Findings: withdrawal symptoms. - Treatment Hospital Course: Detox Protocol Followed, Detoxed Safely, Responded well, Discharged Condition Good - Medication Discharge Medications: Ambulatory Orders Naloxone HCl [Narcan] 4 mg NS ASDIR PRN 12/10/18 Omeprazole 40 mg PO DAILY PRN #7 capsule. 12/12/18 Quetiapine Fumarate [Seroquel -] 100 mg PO HS #30 tablet 12/12/18 - Diagnosis (1) Opioid dependence Status: Acute Qualifiers: Substance use status: uncomplicated Qualified Code(s): F11.20 - Opioid dependence, uncomplicated (2) Cannabis dependence Status: Chronic (3) GERD (gastroesophageal reflux disease) Status: Chronic Qualifiers: Esophagitis presence: esophagitis presence not specified Qualified Code(s) : K21.9 - Gastro-esophageal reflux disease without esophagitis (4) Nicotine dependence Status: Chronic Qualifiers: Nicotine product type: cigarettes Substance use status: uncomplicated Qualified Code(s): F17.210 - Nicotine dependence, cigarettes, uncomplicated (5) Opioid dependence with withdrawal Status: Chronic - AMA Did Patient Leave Against Medical Advice: No
[2019-08-18] MEDS ORDERED: METHADONE HCL 10 MG TABLET (FOR DETOX USE ONLY) PO ONE (10:00)
[2019-08-19] MEDS ORDERED: METHADONE HCL 5 MG TABLET (FOR DETOX USE ONLY) PO ONE (06:00)
== END 2019-08-17 09:40 | disposition home or self-care (01) | DRG 773 ==
LOC: YASAS 11:14 → Y3N 14:41
PROVIDERS: ADMIT Allergy & Immunology; ATTEND Allergy & Immunology
PROC: HZ2ZZZZ Detoxification Services for Substance Abuse Treatment (ICD-10-PCS; principal; 2019-08-14)
DX: F11.23 Opioid dependence with withdrawal (principal); F12.20 Cannabis dependence, uncomplicated; F17.210 Nicotine dependence, cigarettes, uncomplicated; F32.9 Major depressive disorder, single episode, unspecified; K21.9 Gastro-esophageal reflux disease without esophagitis; R00.1 Bradycardia, unspecified; R63.4 Abnormal weight loss; Z59.0 Homelessness
CPT/HCPCS: 36415; 80053; 85027; 86593; 93005; 93010; J0475; J0735

== ENCOUNTER 2023-07-13 18:04 | Inpatient (IN) | payer OTHER ==
[2023-07-13 18:30] VITALS: BMI 26.4
[2023-07-13] MEDS ORDERED: BENZOCAINE/MENTHOL (CHLORASEPTIC ) LOZENGE MM PRN (19:43)
[2023-07-13] MEDS ORDERED: ACETAMINOPHEN 325 MG TABLET (FP) PO PRN (19:43)
[2023-07-13] MEDS ORDERED: MAG HYDROX/AL HYDROX/SIMETH 30 ML UNIT-DOSE CUP PO PRN (19:43)
[2023-07-13] MEDS ORDERED: IBUPROFEN 400 MG TABLET (FP) PO PRN (19:43)
[2023-07-13] MEDS ORDERED: DICYCLOMINE HCL 10 MG CAPSULE PO PRN (19:43)
[2023-07-13] MEDS ORDERED: BISMUTH SUBSALICYLATE 524 MG/30 ML PO PRN (19:43)
[2023-07-13] MEDS ORDERED: MAGNESIUM HYDROX 2400MG/30ML ORAL SUSPENSION 30 ML CUP PO PRN (19:43)
[2023-07-13] MEDS ORDERED: ONDANSETRON *ODT* 4 MG TABLET SL PRN (19:43)
[2023-07-13] MEDS ORDERED: NICOTINE POLACRILEX 2 MG GUM BUC PRN (19:43)
[2023-07-13] MEDS ORDERED: IBUPROFEN 600 MG TABLET (FP) PO PRN (19:43)
[2023-07-13] MEDS ORDERED: NALOXONE HCL 0.4 MG/ML VIAL IM PRN (19:43)
[2023-07-13] MEDS ORDERED: LOPERAMIDE HCL 2 MG CAPSULE PO PRN (19:43)
[2023-07-13] MEDS ORDERED: BENZONATATE 200 MG CAPSULE PO PRN (19:43)
[2023-07-13] MEDS ORDERED: P-EPHED 60MG/TRIPROLIDI 2.5MG TABLET PO PRN (19:43)
[2023-07-13] MEDS ORDERED: POLYETHYLENE GLYCOL (HEALTHYLAX) 3350 17 GM PACKET PO PRN (19:43)
[2023-07-13] MEDS ORDERED: NALOXONE HCL (KLOXXADO) 8 MG SPRAY NS PRN (19:43)
[2023-07-13] MEDS ORDERED: guaiFENesin 600 MG TABLET.ER (FP) PO PRN (19:43)
[2023-07-13] MEDS: THIAMINE HCL 100 MG TABLET (FP) PO SCH (22:37)
[2023-07-13] MEDS: METHOCARBAMOL 500 MG TABLET PO PRN (22:37)
[2023-07-13] MEDS: MELATONIN 5 MG TABLETS PO SCH (22:37)
[2023-07-14] MEDS: METHOCARBAMOL 500 MG TABLET PO PRN (06:32)
[2023-07-14] MEDS ORDERED: methaDONE HCL 10 MG TABLET (FOR DETOX USE ONLY) PO ONE (09:00)
[2023-07-14] MEDS ORDERED: cloNIDine HCL 0.1 MG TABLET PO PRN (09:00)
[2023-07-14] MEDS ORDERED: diazePAM 5 MG TABLET PO PRN (09:02)
[2023-07-14] MEDS ORDERED: PANTOPRAZOLE 20 MG TABLET PO SCH (10:00)
[2023-07-14] MEDS ORDERED: PRENATAL VITAMINS W/ FOLIC ACID TABLET (FP) PO SCH (10:00)
[2023-07-14 21:05] VITALS: BP 153/71; RESP 18; TEMP 97.5
[2023-07-14] MEDS: THIAMINE HCL 100 MG TABLET (FP) PO SCH (22:54)
[2023-07-14] MEDS: MELATONIN 5 MG TABLETS PO SCH (23:00)
[2023-07-14 23:17] VITALS: PULSE 43
[2023-07-16] MEDS ORDERED: methaDONE HCL 10 MG TABLET (FOR DETOX USE ONLY) PO ONE (10:00)
[2023-07-18] MEDS ORDERED: methaDONE HCL 10 MG TABLET (FOR DETOX USE ONLY) PO ONE (10:00)
== END 2023-07-15 04:21 | disposition left against medical advice (07) | DRG 770 ==
LOC: YASAS 18:04 → Y6N 21:50
PROVIDERS: ADMIT Allergy & Immunology; ATTEND Surgery
PROC: HZ2ZZZZ Detoxification Services for Substance Abuse Treatment (ICD-10-PCS; principal; 2023-07-13)
DX: F11.23 Opioid dependence with withdrawal (principal); F12.20 Cannabis dependence, uncomplicated; F17.210 Nicotine dependence, cigarettes, uncomplicated; F19.282 Other psychoactive substance dependence with psychoactive substance-induced sleep disorder; F19.24 Other psychoactive substance dependence with psychoactive substance-induced mood disorder; F32.A Depression, unspecified; D75.1 Secondary polycythemia; D47.3 Essential (hemorrhagic) thrombocythemia; K21.9 Gastro-esophageal reflux disease without esophagitis
CPT/HCPCS: 87635; 93005; 93010; Q0162